=== PATIENT | male | born 1940 | race Caucasian/White ===

== ENCOUNTER 2018-10-31 23:43 | Observation (INO) | payer MEDICARE, OTHER ==
[2018-11-01 00:27] LABS: ABS Basophils 0 10^3/ul (0-0.2); ABS Eosinophils 0.1 10^3/ul (0-0.6); ABS Lymphocytes 0.5 10^3/ul (1.0-4.8); ABS Monocytes 0.3 10^3/ul (0-0.8); ABS Neutrophils 2.6 10^3/ul (1.5-7.7); ABS Nucleated RBC 0 10^3/ul; Eosinophil % 1.9 %; Hematocrit 39 % (36-46); Lymphocyte % 14.3 %; Mean Corpuscular HGB Conc 33 g/dL (31-36); Mean Corpuscular Hemoglobin 32 pg (27-31); Mean Corpuscular Volume 96 fL (80-94); Nucleated Red Blood Cells % 0.1; Platelet Count 120 10^3/uL (150-450); Red Blood Count 4.06 10^6 /uL (4.18-5.48); Red Cell Distribution Width 14 % (10.5-15); White Blood Count 3.5 10^3/uL (3.5-10.8)
[2018-11-01] MEDS ORDERED: diPHENhydraMINE IV* 50 MG/ML 1 ml VIAL (BENADRYL) IV ONE (00:34)
[2018-11-01] MEDS ORDERED: Meclizine TAB* 12.5 MG PO ONE (00:34)
[2018-11-01] MEDS ORDERED: Metoclopramide IV* 5 MG/ML 2 ML VIAL IV SLOW PU ONE (00:34)
[2018-11-01] MEDS ORDERED: NS 0.9% 1000 ML** 1,000 ML IV ONE (00:34)
--- NOTE | 2018-11-01 00:35 | ED ---
GI/ HPI - HPI Summary HPI Summary: 78-year-old male presents with dizziness, nausea and vomiting today. He states he had a large amount of food and then develop nausea vomiting. He states he feels very dizzy. He feels like he could passed out. No headache. No chest pain or shortness breath. Denies any bowel pain. He has been passing gas. No history of previous abdominal surgeries. He was transferred by EMS and given some Zofran and fluids by EMS. He has history of a pacemaker and a fib. is anticoagulanted. No one else is sick. he states he has felt so dizzy that he has been unable to ambulate and was stumbling on his feet. - History of Current Complaint Chief Complaint: EDNauseaVomitDiarrh Time Seen by Provider: 11/01/18 00:09 Stated Complaint: GENERAL ILLNESS PER EMS Pain Intensity: 0 - Additional Pertinent History Primary Care Physician: NICKI - Allergy/Home Medications Allergies/Adverse Reactions: Allergies Allergy/AdvReac Type Severity Reaction Status Date / Time Penicillins Allergy Severe Anaphylatic Verified 10/31/18 23:50 Shock Adhesive Tape AdvReac Severe Rash Verified 10/31/18 23:50 SOFT SHELL CRABS Allergy Severe ANAPHYLACTI Uncoded 10/31/18 23:50 C Home Medications: Home Medications Metoprolol Succinate XL TAB* [Toprol XL TAB*] 25 mg PO DAILY 11/01/18 [History Confirmed 11/01/18] PMH/Surg Hx/FS Hx/Imm Hx Endocrine/Hematology History: Reports: Other Endocrine/Hematological Disorders - IMMUNOLOGICAL (UNSPECIFIED); LEUKOPENIA Cardiovascular History: Reports: Hx Congenital Heart Disease - patent foramen ovale, Hx Congestive Heart Failure - EDEMA, Hx Hypertension - ON MEDICATION FOR , Hx Pacemaker/ICD - 08/2015- HEALTH INFORMATION SPECIALIST - DR. THOMPSON, Other Cardiovascular Problems/Disorders - OPEN HEART [id number] A PATENT FOREMEN OVALE Respiratory History: Reports: Hx Sleep Apnea, Other Respiratory Problems/ Disorders - SLEEP APNEA Denies: Hx Asthma, Hx Chronic Obstructive Pulmonary Disease (COPD) GI History: Reports: Other GI Disorders - constipation 1 week, nausea and ? diarrhea now r/t laxative per pt Musculoskeletal History: Reports: Hx Arthritis - OA/RA, Hx Rheumatoid Arthritis , Hx Bursitis, Hx Tendonitis Sensory History: Reports: Hx Contacts or Glasses - GLASSES Denies: Hx Hearing Aid Opthamlomology History: Reports: Hx Contacts or Glasses - GLASSES - Surgical History Surgery Procedure, Year, and Place: PatenT foramen ovale (ATRIAL-SEPTICAL DEFECT ), 1960, [facility] in [facility]. Right hip replacement, 2007, [facility]. Left knee replacement, 2012, [facility]. Carpal tunnel release bilaterally, 2009, [facility]. Laminectomy, 2007, [facility]. PACEMAKER [id number] Hx Anesthesia Reactions: No Infectious Disease History: No Infectious Disease History: Denies: Traveled Outside the [place] in Last 30 Days - Family History Known Family History: Positive: Non-Contributory - Social History Alcohol Use: None Alcohol Amount: 5 per week Substance Use Type: Reports: None Hx Tobacco Use: No Smoking Status (MU): Never Smoked Tobacco Have You Smoked in the Last Year: No Review of Systems Negative: Fever Negative: Chest Pain Negative: Shortness Of Breath Positive: Vomiting, Nausea Positive: Headache All Other Systems Reviewed And Are Negative: Yes Physical Exam Triage Information Reviewed: Yes Vital Signs On Initial Exam: Initial Vitals Temp Pulse Resp BP Pulse Ox 97.4 F 90 18 151/96 99 10/31/18 23:48 10/31/18 23:48 10/31/18 23:48 10/31/18 23:48 10/31/18 23:48 Vital Signs Reviewed: Yes Appearance: Positive: Well-Appearing Skin: Positive: Warm, Dry Head/Face: Positive: Normal Head/Face Inspection Eyes: Positive: Normal, EOMI, KELSEY, Conjunctiva Clear ENT: Positive: Normal ENT inspection, Pharynx normal, TMs normal Respiratory/Lung Sounds: Positive: Clear to Auscultation, Breath Sounds Present Cardiovascular: Positive: Normal, RRR Abdomen Description: Positive: Nontender, Soft Bowel Sounds: Positive: Present Musculoskeletal: Positive: Normal Neurological: Positive: Sensory/Motor Intact, Alert, Oriented to Person Place, Time, CN Intact II-III, Other - dizziness with head movement Psychiatric: Positive: Normal Diagnostics - Vital Signs Vital Signs Temp Pulse Resp BP Pulse Ox 11/01/18 00:09 91 19 144/92 98 11/01/18 00:08 19 10/31/18 23:48 97.4 F 90 18 151/96 99 - Laboratory Lab Results: Lab Results 11/01/18 Range/Units 00:19 WBC 3.5 (3.5-10.8) 10^3/uL RBC 4.06 L (4.18-5.48) 10^6 /uL Hgb 13.0 L (14.0-18.0) g/dL Hct 39 (36-46) % MCV 96 H (80-94) fL MCH 32 H (27-31) pg MCHC 33 (31-36) g/dL RDW 14 (10.5-15) % Plt Count 120 L (150-450) 10^3/uL MPV 8.0 (7.4-10.4) fL Neut % (Auto) 74.5 % Lymph % (Auto) 14.3 % Travis % (Auto) 8.6 % Eos % (Auto) 1.9 % Baso % (Auto) 0.7 % Absolute Neuts (auto) 2.6 (1.5-7.7) 10^3/ul Absolute Lymphs (auto) 0.5 L (1.0-4.8) 10^3/ul Absolute Monos (auto) 0.3 (0-0.8) 10^3/ul Absolute Eos (auto) 0.1 (0-0.6) 10^3/ul Absolute Basos (auto) 0 (0-0.2) 10^3/ul Absolute Nucleated RBC 0 10^3/ul Nucleated RBC % 0.1 Result Diagrams: 11/01/18 00:19 11/01/18 00:18 Lab Statement: Any lab studies that have been ordered have been reviewed, and results considered in the medical decision making process. - CT brain CT Interpretation Completed By: Radiologist Summary of CT Findings: IMPRESSION: 1. No acute intracranial abnormality. 2. Mild sinus mucosal disease. - EKG No standard instances Cardiac Rate: NL EKG Comparison: No Significant Change Summary of EKG Findings: venticular paced rhythm Re-Evaluation - Re-Evaluation First Eval Re-Evaluation Time: 13:30 Change: Improved Comment: nausea resolved, still dizzy Second Eval Re-Evaluation Time: 03:08 Change: Improved Comment: less dizzy just tired. attempted to have walk around room and needed to hold onto wall GIGU Course/Dx - Course Course Of Treatment: 78-year-old male presents with nausea and vomiting today. He states he had a large amount of food and then develop nausea vomiting. He states he feels very dizzy. He feels like he could passed out. No headache. No chest pain or shortness breath. Denies any bowel pain. He has been passing gas. No history of previous abdominal surgeries. He was transferred by EMS and given some Zofran and fluids by EMS. He has history of a pacemaker. No one else is sick. On exam nontender abdomen. lungs clear to Auscultation. EKG shows paced rhythm. Patient is dizzy with head movement. Otherwise normal neuro exam. wbc normal. electrolytes normal. Gave Benadryl and Reglan and fluids and feeling better. Patient was able to ambulate but became very dizzy. CT brain shows no acute findings. with symptoms discussed with dr joseph says to consult with hospitalist for stroke work up. patient will be signed out to dr joseph pending hospitalist consultation - Diagnoses Differential Diagnoses - Male: Gastroenteritis (Bacterial), Gastroenteritis ( Viral), Urinary Tract Infection Provider Diagnoses: Dizziness, Vomiting Discharge - Sign-Out/Discharge Documenting (check all that apply): Sign-Out Patient Signing out patient TO: Eduardo Joseph - Discharge Plan Referrals: Gonsalo Jauregui MD [Primary Care Provider] -
[2018-11-01 00:45] LABS: Albumin 4.1 g/dL (3.2-5.2); Albumin/Globulin Ratio 1.6 (1-3); BUN/Creatinine Ratio 25.7 (8-20); C Reactive Protein 7.99 mg/L (<8.01); Calcium 9.3 mg/dL (8.6-10.3); EGFR African American 61.6 (>60); EGFR Non-African American 50.9 (>60); Globulin 2.6 g/dL (2-4); Potassium 4.1 mmol/L (3.5-5.0); Total Bilirubin 0.9 mg/dL (0.2-1.0); Total Protein 6.7 g/dL (6.4-8.9)
[2018-11-01 00:46] LABS: Troponin I 0.03 ng/mL (<0.04)
[2018-11-01 01:55] LABS: Urine Appearance Cloudy; Urine Bilirubin Negative (Negative); Urine Blood Negative (Negative); Urine Color Yellow; Urine Glucose Negative (Negative); Urine Ketones Trace (Negative); Urine Nitrite Negative (Negative); Urine Protein Negative (Negative); Urine Specific Gravity 1.021 (1.010-1.030); Urine Urobilinogen Negative (Negative)
[2018-11-01] MEDS ORDERED: Losartan TAB* 25 MG PO SCH (09:00)
[2018-11-01] MEDS: Spironolactone TAB* 25 MG PO SCH (09:03)
[2018-11-01] MEDS: Rivaroxaban TAB(*) 20 MG TAB PO SCH (09:03)
[2018-11-01] MEDS: Metoprolol Succinate XL TAB* 25 MG PO SCH (09:03)
[2018-11-01] MEDS: Dofetilide CAP* 250 MCG PO SCH ×2 (09:03→20:45)
[2018-11-01] MEDS: Multivitamins/Minerals TAB PO SCH (09:04)
--- NOTE | 2018-11-01 09:50 | HP ---
CC: Dr. Jauregui; Dr. Way* HISTORY AND PHYSICAL: DATE OF ADMISSION: 11/01/18 PRIMARY CARE PROVIDER: Dr. Jauregui. GLOVE PAIRER: Dr. Way. CHIEF COMPLAINT: Dizziness. HISTORY OF PRESENT ILLNESS: Mr. Shearer is a 78-year-old male who has a history of paroxysmal atrial fibrillation, chronic diastolic congestive heart failure, NATALIA, hypertension, rheumatoid arthritis, and thrombocytopenia who presents to the emergency room with complaints of dizziness and nausea. The patient states that he has just completed a large meal with his at [facility]. When he stood up from the table and felt what he describes as head house. He felt quite woozy. He asked his to drive home because he was feeling unwell. He states that the initial head house feeling subsided, but he still continue to feel off. He felt as if he was swaying. He was able to get into his house and up 6 steps into his bedroom when he then stumbled into his closet. He ultimately got into bed and suddenly felt very nauseous and began to vomit. EMS was contacted. He was given Zofran in the ambulance and despite this he continued to have significant nausea. He again vomited in the ER. He states the nausea has completely resolved at this point. Overall, the patient states that he is no longer feeling the swaying sensation, but he feels drugged. He states that this does feel similar to when he takes Tylenol p.m. at home. He has been sitting in the stretcher with his eyes closed, but he states that he is doing that not because of ongoing dizziness. He has no dizziness when he turns his head from left to right or up and down. He has no dizziness upon sitting up in the stretcher. He and his both deny any sudden onset of one sided weakness, slurred speech, or droopy face. PAST MEDICAL HISTORY: 1. Atrial fibrillation. 2. Diastolic CHF. 3. NATALIA, utilizing CPAP at home. 4. Hypertension. 5. RA. 6. Thrombocytopenia. 7. Sick sinus syndrome. PAST SURGICAL HISTORY: 1. Left knee replacement. 2. Bilateral carpal tunnel release. 3. Lumbar laminectomy. 4. Pacemaker insertion. 5. ASD repair. 6. Right hip replacement. MEDICATIONS: 1. Micardis 80 mg p.o. daily. 2. Xarelto 20 mg p.o. daily. 3. Tikosyn 250 mcg p.o. twice daily. 4. Metoprolol XL 25 mg p.o. daily. 5. Magnesium 400 mg p.o. daily. 6. Glucosamine chondroitin 2 tablets p.o. daily. 7. Lasix 20 mg p.o. every other day alternating with spironolactone 25 mg every other day. 8. Multivitamin 1 tab p.o. daily. ALLERGIES: PENICILLIN. FAMILY HISTORY: Mom at the age of 93, she had hypertension and Alzheimer' s. Dad at the age of 59, he had TTP. SOCIAL HISTORY: The patient is a lifelong nonsmoker. He does not drink alcohol. 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 He is . He has 1 adopted child. He indicates that his would be his healthcare proxy. REVIEW OF SYSTEMS: A complete 11-system review of systems is obtained. Pertinent positives and negatives are as per HPI and otherwise negative. PHYSICAL EXAMINATION GENERAL: The patient is a well-developed, elderly male, sitting up in the stretcher, in no acute distress. VITAL SIGNS: Blood pressure 139/99, pulse 89, respirations 30, temp 97.4, O2 sat 97% on room air. HEENT: Pupils are equal and round. Extraocular muscles are intact. There is nystagmus noted when looking both left and right. It does not extinguish with far lateral gaze. Oropharynx is clear. Oral mucosa is moist. There is no submandibular, cervical, or supraclavicular adenopathy. Thyroid is not enlarged. No thyroid nodules are noted. PULMONARY: Lungs are clear to auscultation bilaterally. CARDIAC: Normal S1, S2. Regular rate and rhythm. I do not appreciate any murmurs. There is minimal bilateral lower extremity pitting edema. ABDOMEN: Bowel sounds present. Abdomen is soft, nontender, nondistended. MUSCULOSKELETAL: There is no cyanosis or clubbing of the digits. There is full active range of motion of all 4 extremities. SKIN: Warm and dry. There are no rashes. NEURO: Cranial nerves II through XII are grossly intact. Sensation is intact to light touch throughout. Strength is 5/5 and symmetric to both upper and lower extremities bilaterally. PSYCH: The patient is alert. He is oriented x3. Affect appears appropriate. LABORATORY DATA: WBC 3.5, hemoglobin 13.0, hematocrit 39, platelets 120. Sodium 140, potassium 4.1, chloride 105, CO2 of 28, BUN 35, creatinine 1.36, glucose 129. Lactic acid 1.3. Calcium 9.3. Bilirubin 0.9, AST 35, ALT 32, alk phos 74. Troponin 0.03. Albumin is 4.1. Urinalysis is pending. DIAGNOSTIC STUDIES: EKG revealed a ventricularly paced rhythm. CT brain revealed no acute intracranial abnormality and mild sinus mucosal disease. ASSESSMENT AND PLAN: Mr. Shearer is a 78-year-old male with a history of history of paroxysmal atrial fibrillation , diastolic congestive heart failure, obstructive sleep apnea, hypertension, and rheumatoid arthritis, who presented to the emergency room with complaints of dizziness and nausea and is being admitted for evaluation of the dizziness. 1. Dizziness. In the differential currently is posterior circulation cerebrovascular accident versus benign positional vertigo versus orthostasis leading to dizziness and vomiting. It is hard to tell if the patient is truly feeling better or not as he describes feeling drugged related to the Benadryl he received earlier. He has not been up and walking yet in the ER. Given the potentially ongoing symptoms and nystagmus seen on exam, the plan is to admit the patient under observation status to be evaluated by Neurology. I suspect this likely represents peripheral vertigo and not a cerebrovascular accident. 2. Atrial fibrillation. The patient is currently paced. We will continue his Tikosyn, metoprolol and Xarelto. 3. Diastolic congestive heart failure. At this point, the patient appears to be relatively euvolemic. He will continue on his current diuretic regimen. 4. Obstructive sleep apnea. We will continue CPAP. 5. Hypertension. Blood pressure is under fair control. We will continue home medication regimen. 6. DVT prophylaxis. According to the Adult Thrombosis Prophylaxis Risk Factor Assessment Guide, the patient has a total risk factor score of 4, making him high risk. He is already on Xarelto and this will act as his DVT prophylaxis. 7. Code status is full. TIME SPENT: Sixty five minutes was spent admitting this patient. [id number]/[facility] #: [id number] MTDVenita
--- NOTE | 2018-11-01 18:07 | CONS ---
CONSULTATION REPORT: DATE OF CONSULT: 11/01/18. PATIENT OF: Dr. Curran, Dr. Jauregui, Dr. Way.* HISTORY OF PRESENT ILLNESS: This is a 78-year-old man, who presents with new onset of vertigo and nausea. He developed a head house and a feeling of wooziness shortly after dinner, a large meal at a restaurant, and he had his drive home because he was feeling unwell. He says that the symptoms progressed over the first hour and by the time he got home, he was stumbling and had a hard time maintaining his balance. He did not fall. He had nausea and vomiting and the feeling that things were moving, although it was not a spinning sensation per se. He says that yesterday he was unable to move his head without this sensation of dizziness being worse, although this is different than Dr. Ponce's history on admission. PAST MEDICAL HISTORY: He has a past history of atrial fibrillation, diastolic congestive heart failure, osteoarthritis, hypertension, rheumatoid arthritis, thrombocytopenia, sick sinus syndrome. PAST SURGICAL HISTORY: He is status post left knee replacement, bilateral carpal tunnel release, lumbar laminectomy, pacemaker insertion which is MRI compatible, ASD repair, right hip replacement. MEDICATIONS: At home, include: 1. Micardis 80 mg daily. 2. Xarelto 20 mg daily. 3. Tikosyn 250 twice daily. 4. Metoprolol 25 mg daily. 5. Magnesium 400 daily. 6. Glucosamine 2 tablets daily. 7. Lasix 20 mg every other day alternating with spironolactone 25 mg every other day. 8. Multivitamin. ALLERGIES: He is allergic to PENICILLIN. FAMILY HISTORY: Mother at 93 with hypertension and Alzheimer's. Father at 59 of TTP. 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 He is , with 1 adopted child. REVIEW OF SYSTEMS: Negative in all 14 spheres other than HPI. There was no headache. No visual changes. No numbness or weakness. His balance was usually good. PHYSICAL EXAM: Temperature 98.6, pulse 90, respirations 18, blood pressure 126/ 84. He is alert and oriented with normal speech and comprehension. There is no dysarthria. Cranial nerves II through XII were intact other than he had nystagmus both to the left and to the right with the left nystagmus perhaps being somewhat larger than the right nystagmus, but they were roughly symmetric. Motor exam revealed normal tone. No pronator drift. He had intact symmetric [id number]. There was slight hesitancy, but no past-pointing. His nystagmus was not worse with quick changes in head position. He was able to get out of bed and walk independently, but he veered both off to the left and to the right without clear predominance. Strength was 5/5. Reflexes were 2 and equal, downgoing toes. Chest: Clear. Cardiovascular: Regular rate and rhythm. Abdomen is soft with positive bowel sounds. I was not sure if there was a carotid bruit on the right, Dr. Curran heard one, I was not 100% sure. DIAGNOSTIC STUDIES/LAB DATA: I reviewed his CT scan, which was unremarkable. His labs include a normal CBC other than a platelet count of 120, MCV was 96. BUN was 35, creatinine 1.36. Rest of the CMP was normal other than glucose of 129. UA was negative. IMPRESSION AND PLAN: I discussed with Red and also Dr. Curran that the onset of his symptoms was not instant, but occurred an hour that there was a positional component to this according to the patient today and that his nystagmus was bilateral and he is staggering to either side. I think most likely this is peripheral rather than central, but it is possible there was mild asymmetry to the degree of his nystagmus on either side that this could be stroke related and he does have atrial fibrillation. He should have an MRI scan done and Dr. Curran is ordering that, but I think he is clearly not a tPA candidate because he was never a tPA candidate because he is on Xarelto and he has done so much better, he would not be a clot retrieval candidate given the time course and also that he is able to independently walk at this time. Therefore, we will order the MRI scan, but it would not change his immediate care at this point. Dr. Curran will also prescribe meclizine. It was prescribed yesterday, but it was discontinued. He does not remember taking it. He should also have Physical Therapy consult to teach him how to do maneuvers to flush if he had otolith. Thank you for sharing his case. [id number]/[facility] #: [id number] WES
[2018-11-01] MEDS ORDERED: Meclizine TAB* 12.5 MG PO PRN (18:39)
--- NOTE | 2018-11-01 18:46 | PN ---
Subjective Date of Service: 11/01/18 Interval History: Still feels fuzzy like he had taken benadryl No N/V, LH Does not feel dizzy NO HUGHES, change in vision, dipolpia Objective Active Medications: Dofetilide (Tikosyn Cap*) 250 mcg PO BID [facility] Last Admin: 11/01/18 09:03 Dose: 250 mcg Furosemide (Lasix Tab*) 20 mg PO EVERY OTHER DAY [facility] Losartan Potassium (Cozaar Tab*) 100 mg PO DAILY [facility]; Protocol Last Admin: 11/01/18 09:03 Dose: 100 mg Metoprolol Succinate (Toprol Xl Tab*) 25 mg PO DAILY [facility] Last Admin: 11/01/18 09:03 Dose: 25 mg Multivitamins/Minerals (Theragran/Minerals Tab*) 1 tab PO DAILY [facility] Last Admin: 11/01/18 09:04 Dose: 1 tab Rivaroxaban (Xarelto(*)) 20 mg PO DAILY [facility] Last Admin: 11/01/18 09:03 Dose: 20 mg Spironolactone (Aldactone Tab*) 25 mg PO EVERY OTHER DAY [facility] Last Admin: 11/01/18 09:03 Dose: 25 mg Vital Signs - 8 hr 11/01/18 13:10 Temperature 98.6 F Pulse Rate 90 Respiratory 18 Rate Blood Pressure 126/84 (mmHg) O2 Sat by Pulse 98 Oximetry Oxygen Devices in Use Now: None Appearance: NAD Eyes: No Scleral Icterus, PERRLA Ears/Nose/Mouth/Throat: NL Teeth, Lips, Gums, Clear Oropharnyx Neck: NL Appearance and Movements; NL JVP, Trachea Midline, - - right carotid bruit Respiratory: Symmetrical Chest Expansion and Respiratory Effort, Clear to Auscultation Cardiovascular: NL Sounds; No Murmurs; No JVD Abdominal: NL Sounds; No Tenderness; No Distention, No Hepatosplenomegaly Lymphatic: No Cervical Adenopathy Extremities: No Edema Skin: No Rash or Ulcers Neurological: Alert and Oriented x 3, - - b/l nystagmus but more pronounced to left, unable to ealk heel to chandler Result Diagrams: 11/01/18 00:19 11/01/18 00:18 Additional Lab and Data: Lab Results 11/01/18 Range/Units 00:19 WBC 3.5 (3.5-10.8) 10^3/uL RBC 4.06 L (4.18-5.48) 10^6 /uL Hgb 13.0 L (14.0-18.0) g/dL Hct 39 (36-46) % MCV 96 H (80-94) fL MCH 32 H (27-31) pg MCHC 33 (31-36) g/dL RDW 14 (10.5-15) % Plt Count 120 L (150-450) 10^3/uL MPV 8.0 (7.4-10.4) fL Neut % (Auto) 74.5 % Lymph % (Auto) 14.3 % Cassia % (Auto) 8.6 % Eos % (Auto) 1.9 % Baso % (Auto) 0.7 % Absolute Neuts (auto) 2.6 (1.5-7.7) 10^3/ul Absolute Lymphs (auto) 0.5 L (1.0-4.8) 10^3/ul Absolute Monos (auto) 0.3 (0-0.8) 10^3/ul Absolute Eos (auto) 0.1 (0-0.6) 10^3/ul Absolute Basos (auto) 0 (0-0.2) 10^3/ul Absolute Nucleated RBC 0 10^3/ul Nucleated RBC % 0.1 Assess/Plan/Problems-Billing Assessment: 78 yo M h/o NATALIA, afib, HFpEF pw LH/dizziness associated with multiple episodes emesis - Patient Problems (1) Vertigo Comment: appreciate neuro c/s suspect peripheral etiology but MRI still warranted meclizine may need PT for vertigo (2) Atrial fibrillation Comment: xarelto metoprolol tikosyn (3) (HFpEF) heart failure with preserved ejection fraction Comment: lasix (4) Hypertension Comment: losartan aldactone metoprolol lasix (5) DVT prophylaxis Comment: jai
[2018-11-02] MEDS ORDERED: Furosemide TAB* 20 MG PO SCH (09:00)
[2018-11-02] MEDS: Multivitamins/Minerals TAB PO SCH (10:04)
[2018-11-02] MEDS: Dofetilide CAP* 250 MCG PO SCH ×2 (10:04→21:32)
[2018-11-02] MEDS: Metoprolol Succinate XL TAB* 25 MG PO SCH (12:58)
[2018-11-02] MEDS: Rivaroxaban TAB(*) 20 MG TAB PO SCH (12:58)
--- NOTE | 2018-11-02 13:20 | PN ---
Subjective Date of Service: 11/02/18 Interval History: Feels much improved but not back to baseline Does not feel like he is going to "fall flat on my face" but still feels "off" Ambulating today without assistance and without trouble No N/V, LH, SOB or CP Objective Active Medications: Dofetilide (Tikosyn Cap*) 250 mcg PO BID [facility] Last Admin: 11/02/18 10:04 Dose: 250 mcg Furosemide (Lasix Tab*) 20 mg PO EVERY OTHER DAY [facility] Last Admin: 11/02/18 10:04 Dose: 20 mg Losartan Potassium (Cozaar Tab*) 100 mg PO BEDTIME [facility]; Protocol Meclizine HCl (Antivert Tab*) 25 mg PO Q8HR PRN PRN Reason: DIZZINESS Metoprolol Succinate (Toprol Xl Tab*) 25 mg PO 2100 [facility] Multivitamins/Minerals (Theragran/Minerals Tab*) 1 tab PO DAILY [facility] Last Admin: 11/02/18 10:04 Dose: 1 tab Rivaroxaban (Xarelto(*)) 20 mg PO 2100 [facility] Spironolactone (Aldactone Tab*) 25 mg PO EVERY OTHER DAY [facility] Last Admin: 11/01/18 09:03 Dose: 25 mg Vital Signs - 8 hr 11/02/18 11/02/18 08:00 08:46 Temperature 97 F Pulse Rate 92 Respiratory 20 17 Rate Blood Pressure 128/88 (mmHg) O2 Sat by Pulse 100 Oximetry Oxygen Devices in Use Now: None Appearance: NAD Eyes: No Scleral Icterus, PERRLA Ears/Nose/Mouth/Throat: NL Teeth, Lips, Gums, Clear Oropharnyx Neck: NL Appearance and Movements; NL JVP, Trachea Midline Respiratory: Symmetrical Chest Expansion and Respiratory Effort, Clear to Auscultation Cardiovascular: RRR Abdominal: NL Sounds; No Tenderness; No Distention, No Hepatosplenomegaly Lymphatic: No Cervical Adenopathy Extremities: No Edema Skin: No Rash or Ulcers Neurological: Alert and Oriented x 3, - - nystagmus to left and right Result Diagrams: 11/01/18 00:19 11/01/18 00:18 Additional Lab and Data: Lab Results 11/01/18 Range/Units 00:19 WBC 3.5 (3.5-10.8) 10^3/uL RBC 4.06 L (4.18-5.48) 10^6 /uL Hgb 13.0 L (14.0-18.0) g/dL Hct 39 (36-46) % MCV 96 H (80-94) fL MCH 32 H (27-31) pg MCHC 33 (31-36) g/dL RDW 14 (10.5-15) % Plt Count 120 L (150-450) 10^3/uL MPV 8.0 (7.4-10.4) fL Neut % (Auto) 74.5 % Lymph % (Auto) 14.3 % [place] % (Auto) 8.6 % Eos % (Auto) 1.9 % Baso % (Auto) 0.7 % Absolute Neuts (auto) 2.6 (1.5-7.7) 10^3/ul Absolute Lymphs (auto) 0.5 L (1.0-4.8) 10^3/ul Absolute Monos (auto) 0.3 (0-0.8) 10^3/ul Absolute Eos (auto) 0.1 (0-0.6) 10^3/ul Absolute Basos (auto) 0 (0-0.2) 10^3/ul Absolute Nucleated RBC 0 10^3/ul Nucleated RBC % 0.1 Assess/Plan/Problems-Billing Assessment: 78 yo M h/o NATALIA, afib, HFpEF pw LH/dizziness associated with multiple episodes emesis - Patient Problems (1) Vertigo Comment: appreciate neuro c/s suspect peripheral etiology but MRI still warranted to r/o CVA If CVA noted will need additional diagnostic tests and treatment meclizine PT for vertigo appreciated (2) Atrial fibrillation Comment: xarelto metoprolol tikosyn (3) (HFpEF) heart failure with preserved ejection fraction Comment: lasix (4) Hypertension Comment: losartan aldactone metoprolol lasix (5) DVT prophylaxis Comment: kristinrelto
[2018-11-02] MEDS ORDERED: Losartan TAB* 25 MG PO SCH (21:00)
[2018-11-02] MEDS ORDERED: Metoprolol Succinate XL TAB* 25 MG PO SCH (21:00)
[2018-11-02] MEDS ORDERED: Rivaroxaban TAB(*) 20 MG TAB PO SCH (21:00)
[2018-11-02] MEDS ORDERED: Polyethylene Glycol 3350* 17 GM PACKET PO PRN (22:46)
[2018-11-03] MEDS: Spironolactone TAB* 25 MG PO SCH (08:02)
[2018-11-03] MEDS: Multivitamins/Minerals TAB PO SCH (08:02)
[2018-11-03 08:03] VITALS: BP 127/90
[2018-11-03] MEDS: Dofetilide CAP* 250 MCG PO SCH (08:03)
--- NOTE | 2018-11-03 14:33 | PN ---
Subjective Date of Service: 11/03/18 Length of Stay: 2 Days Neurology is following Mr. Shearer for transient vertigo. Interval History: Review of the medical history obtained by the patient and by reviewing the medical records. The patient is a healthy 78-year-old man with history of atrial fibrillation on Xarelto (compliant) who developed a gradual onset of vertigo. The patient had dinner at the [employer] Saturday evening and he felt a head house after dinner. He was able to walk to his car but felt unsteady. His spouse had to drive home because he did not feel safe to drive. When he got home, the vertiginous sensation was constant. He described it as being pulled and turned but nothing around him was spinning. He denied any double vision, tinnitus, or hearing loss. He denied any headaches. He felt extremely nauseated and was vomiting. Moving his head seemed to exacerbate his vertigo. He does not typically vomit. He denied any fevers. He denied any focal weakness or paresthesia. The symptoms were at their worse Saturday night. He was slowly improving throughout the day Saturday and felt completely back to his normal self on Saturday. He was evaluated by Dr. Jones who thought he may have a peripheral cause for his vertigo. However, a central etiology was unable to be excluded. The patient has a pacemaker for sick sinus syndrome. The pacemaker is MRI compatible. He is disappointed that he had to stay here throughout the weekend and be told that an MRI cannot be done until a [employer] tech is present. He does not want to wait for the MRI any longer and would prefer to have it scheduled as an outpatient. He was started on Meclizine and seems to be tolerating the medication with improvement in his vertigo. Mr. Shearer is asymptomatic. He denied any headaches, visual disturbance, dizziness, or paresthesia. CT head without contrast completed on 11/01/2018 reported no evidence of acute intracranial abnormalities. There was small hyperdensity in the fourth ventricle. In this clinical setting, this finding is non-specific. Carotid ultrasound completed on 11/02/2018 measured no hemodynamically significant stenosis bilaterally. There were right and left vertebral artery antegrade flow. Review of Systems: Denied CP, SOB, or palpitations. Objective Active Medications: Dofetilide (Tikosyn Cap*) 250 mcg PO BID [facility] Last Admin: 11/03/18 08:03 Dose: 250 mcg Furosemide (Lasix Tab*) 20 mg PO EVERY OTHER DAY [facility] Last Admin: 11/02/18 10:04 Dose: 20 mg Losartan Potassium (Cozaar Tab*) 100 mg PO BEDTIME [facility]; Protocol Last Admin: 11/02/18 21:35 Dose: 100 mg Meclizine HCl (Antivert Tab*) 25 mg PO Q8HR PRN PRN Reason: DIZZINESS Metoprolol Succinate (Toprol Xl Tab*) 25 mg PO 2100 [facility] Last Admin: 11/02/18 21:36 Dose: 25 mg Multivitamins/Minerals (Theragran/Minerals Tab*) 1 tab PO DAILY [facility] Last Admin: 11/03/18 08:02 Dose: 1 tab Polyethylene Glycol/Electrolytes (Miralax*) 17 gm PO DAILY PRN PRN Reason: CONSTIPATION Last Admin: 11/02/18 23:15 Dose: 17 gm Rivaroxaban (Xarelto(*)) 20 mg PO 2100 [facility] Last Admin: 11/02/18 21:38 Dose: 20 mg Spironolactone (Aldactone Tab*) 25 mg PO EVERY OTHER DAY [facility] Last Admin: 11/03/18 08:02 Dose: 25 mg Vital Signs 11/02/18 11/02/18 11/02/18 19:34 20:00 23:35 Temperature 97.8 F Pulse Rate 96 94 Respiratory 18 18 Rate Blood Pressure 118/80 113/72 (mmHg) O2 Sat by Pulse 100 98 Oximetry 11/03/18 11/03/18 11/03/18 04:45 07:51 07:54 Temperature 97 F 97.7 F Pulse Rate 93 94 Respiratory 18 20 18 Rate Blood Pressure 121/85 127/90 (mmHg) O2 Sat by Pulse 98 98 Oximetry Intake and Output Last 24 Hours 11/01/18 11/02/18 11/03/18 11/04/18 06:59 06:59 06:59 06:59 Intake Total 1000 500 840 250 Output Total 0 0 Balance 1000 500 840 250 Weight 197 lb 14.4 oz Intake: IV Fluids 1000 Oral 0 500 840 250 Output: Urine 0 0 Other: # Voids 0 Oxygen Devices in Use Now: None Neurology Exam: General: Well nourished, well developed, and in no acute distress HEENT: Normocephelic/atraumatic, sclera anicteric, mucous membranes moist Neck: Supple Chest: Clear to auscultation bilaterally Cardiovascular: Regular rate and rhythm without murmurs, rubs, gallops Abdomen: Soft, non-tender/non-distended Extremities: No clubbing, cyanosis, or edema Neurological Findings: Awake, alert, and oriented to person, place, and time. Speech: fluent without dysarthria, repetition intact Cranial Nerve: PERRL, EOM intact, VFF, right horizontal nystagmus that is fatigable. No primary gaze nystagmus. HiNT is positive towards the right. Motor: s/s throughout, proximal and distal extremities x4 tone/bulk normal Sensation: intact to LT/PP bilaterally upper and lower extremities Deep Tendon Reflex: 2+ symmetric in the upper/lower extremities, Babinski - down going Finger to nose, rapid alternating movements intact without tremor, no dysdiadochokinesia Gait: intact with good arm swing and stride Result Diagrams: 11/01/18 00:19 11/01/18 00:18 Additional Lab and Data: Lab Results 11/01/18 Range/Units 00:19 WBC 3.5 (3.5-10.8) 10^3/uL RBC 4.06 L (4.18-5.48) 10^6 /uL Hgb 13.0 L (14.0-18.0) g/dL Hct 39 (36-46) % MCV 96 H (80-94) fL MCH 32 H (27-31) pg MCHC 33 (31-36) g/dL RDW 14 (10.5-15) % Plt Count 120 L (150-450) 10^3/uL MPV 8.0 (7.4-10.4) fL Neut % (Auto) 74.5 % Lymph % (Auto) 14.3 % [place] % (Auto) 8.6 % Eos % (Auto) 1.9 % Baso % (Auto) 0.7 % Absolute Neuts (auto) 2.6 (1.5-7.7) 10^3/ul Absolute Lymphs (auto) 0.5 L (1.0-4.8) 10^3/ul Absolute Monos (auto) 0.3 (0-0.8) 10^3/ul Absolute Eos (auto) 0.1 (0-0.6) 10^3/ul Absolute Basos (auto) 0 (0-0.2) 10^3/ul Absolute Nucleated RBC 0 10^3/ul Nucleated RBC % 0.1 Assessment/Plan Assessment/recommendations: 1. Transient vertigo that lasted <24 hours. Positive HiNT and fatigable nystagmus towards the right suggests vestibular dysfunction involving the right side. This can be related to BPPV or acute labrynthitis. The lack of hearing loss and tinnitus suggests against vestibular neuritis. A central cause has been entertained but is less likely. However, since his symptoms resolved quite quickly, TIA to the posterior circulation due to vertebrobasilar insufficiency should be further evaluated. The patient would prefer to complete the work-up as an outpatient since he has been waiting for an MRI all weekend. He had an ECHO done recently by his cash checker. He also had an LDL checked and does not report any elevation of LDL. I have arranged for him to have an MRI brain without contrast, MRA head without contrast, and MRA neck without contrast done as an outpatient. The MRI screen/Interview is scheduled for November. He will also follow- up with me on November 17, 2018 to review the results. I recommend starting him on aspirin 81 mg daily to be taken in the morning and not with the Xarelto dose. Continue Xarelto. Continue exercising regularly. He agreed with the plan and verbalized that if he has recurrence of the symptoms or new symptoms such as facial droop, arm weakness, slurred speech to contact 911 immediately. Time spent: 35 minutes of which >50% was spent obtaining history, physical examination, education and counseling, and discussing the treatment plan as mentioned above.
--- NOTE | 2018-11-03 21:37 | DS ---
CC: Dr. Jauregui; Dr. Matute * DISCHARGE SUMMARY: DATE OF ADMISSION: 11/01/18 DATE OF DISCHARGE: 11/03/18 PRIMARY CARE PROVIDER: Dr. Jauregui. NEUROLOGIST: Dr. Matute. PRINCIPAL DIAGNOSIS: Peripheral vertigo versus possible posterior circulation transient ischemic attack. SECONDARY DIAGNOSES: 1. Hypertension. 2. Atrial fibrillation. 3. Diastolic congestive heart failure. 4. Sick sinus syndrome, status post pacemaker insertion. 5. Obstructive sleep apnea. 6. Rheumatoid arthritis. 7. Chronic thrombocytopenia. DISCHARGE MEDICATIONS: 1. Spironolactone 25 mg p.o. every other day alternating with Lasix 20 mg every other day. 2. Telmisartan 80 mg p.o. daily. 3. Multivitamin 1 tab p.o. daily. 4. Magnesium oxide 400 mg p.o. daily. 5. Glucosamine chondroitin 1500 mg p.o. b.i.d. 6. Tikosyn 250 mcg p.o. b.i.d. 7. Xarelto 20 mg p.o. daily. 8. Metoprolol XL 25 mg p.o. daily. 9. Aspirin 81 mg p.o. daily (new). HOSPITAL COURSE: Mr. Shearer is a 78-year-old male, who presented to the emergency room on 11/01/18 with complaints of dizziness. The patient had just consumed a large meal at dinner with his when he then stood up from the table and felt a whooshing sensation and felt unsteady. The unsteadiness continued at home. He was stumbling around in his closet, but did not fall. The patient then had nausea and vomiting. Ultimately, he was brought to the emergency room via EMS. In the ER, he had received Benadryl, which made the patient feel quite loopy. He felt out of it, but did note that a swaying sensation that he had described previously had seemed to have resolved. The patient was then seen in consultation later in the day on 11/01/[address] Jones recommended an MRI of the brain. This was planned to be done on 11/03/18; however, given the patient's pacemaker status, a clearance process needs to be undertaken before the patient can have the MRI. Because of this, I asked Dr. Matute to see the patient in followup. Dr. Matute has recommended initiating aspirin 81 mg p.o. daily while waiting for an MRI and an MRA to evaluate for vertebrobasilar insufficiency. Dr. Mattue will see the patient in followup on 11/17/18 to review the results of the MRI and at that time if negative, the aspirin will be discontinued. At this point, the patient is feeling much improved. He has been ambulating with a steady gait. He does continue to feel somewhat off. He does continue to have some nystagmus. The patient will return to the emergency room for any new or worsening symptoms. PHYSICAL EXAMINATION: On the day of discharge, the patient is awake, alert, and oriented, sitting in the chair, in no acute distress. Cardiac exam reveals normal a S1, S2 with a regular rate and rhythm. I do not appreciate any murmurs. There is no lower extremity edema. Lungs are clear to auscultation bilaterally. Abdomen is soft, nontender, nondistended. Again, the patient walks with a fluid steady gait. FOLLOWUP CONCERNS: The patient is being discharged home today, 11/03/18. I am unable to arrange for the MRI to be obtained as an outpatient. I have spoken to the neurology office, who will get the patient arranged for an outpatient MRI and MRA. ACTIVITY LEVEL: As tolerated. DIET: Heart healthy. CONDITION ON DISCHARGE: Stable. TIME SPENT: Thirty-five minutes was spent discharging this patient. [id number]/[facility] #: [id number] WES
== END 2018-11-03 14:41 | disposition home or self-care (01) ==
LOC: ED 23:43 → MEDTELE 11-01 04:20
PROVIDERS: ADMIT Hospitalist; ATTEND Hospitalist
DX: R42 Dizziness and giddiness (principal); I10 Essential (primary) hypertension; I48.91 Unspecified atrial fibrillation; I50.30 Unspecified diastolic (congestive) heart failure; Z95.0 Presence of cardiac pacemaker; M06.9 Rheumatoid arthritis, unspecified; R11.2 Nausea with vomiting, unspecified; D69.6 Thrombocytopenia, unspecified; Z88.0 Allergy status to penicillin; R51 Headache; I49.5 Sick sinus syndrome; G47.33 Obstructive sleep apnea (adult) (pediatric); Z79.82 Long term (current) use of aspirin; D72.819 Decreased white blood cell count, unspecified
CPT/HCPCS: 36415; 70450; 80053; 81003; 83605; 83690; 84484; 85025; 86140; 93005; 93880; 94660; 96361; 96374; 96375; 99285; A9270-GY; G0378; G8978-GP-CI; G8979-GP-CI; G8980-GP-CI; J1200; J2765

== ENCOUNTER → 2019-01-16 10:17 | Day surgery (SDC) | payer MEDICARE, OTHER ==
[~2019-01-16 10:17] MED LIST: Heparin 2 UNITS/ML IVPREMIX* 2,000 UNIT/1,000 ML BAG IV ONE; Heparin(*) 1000 UNIT/ML 10 ML VIAL CATH LAB IV ONE; Iodixanol 320 (CONTRAST) 100 ML SDV ONE; Lidocaine 1% INJ* 10 MG/ML 30 ML SDV ONE; Midazolam* 1 MG/ML 5 ML VIAL (5 MG) ONE; NS 0.9% 1000 ML** 1,000 ML IV SCH; VERAPAMIL 2.5 MG/ML 2 ML VIAL ** 5 mg/2 ml ONE; fentaNYL* 50 MCG/ML 2 ML VIAL (100 MCG VIAL) ONE; nitroGLYCERIN DRIP* 25,000 MCG/250 ML BTL ONE
[2019-01-16 16:51] VITALS: BP 111/57
--- NOTE | 2019-01-27 15:43 | CATH ---
CC: Dr. Jauregui; Dr. Way * CATHETERIZATION REPORT: DATE OF PROCEDURE: 01/16/19 - [facility] CATH PRIMARY CARE PHYSICIAN: Dr. Jauregui. TAPER MACHINE: Dr. Way. PROCEDURES: Right radial artery access, bilateral selective coronary cineangiography, left heart catheterization, left ventriculography. HISTORY: A 78-year-old male with history of paroxysmal atrial fibrillation, LV systolic dysfunction, stress imaging that revealed an inferior infarct on MPI. Subsequent thallium viability study revealed the inferior wall to be viable. He was referred for coronary angiography. PROCEDURE ACCESS: Right radial artery, sheath 6F slender with ultrasound. MEDICATIONS: 1. Subcu lidocaine. 2. IV Versed. 3. IV fentanyl. 4. Heparin 3000 units. 5. Verapamil 3 mg. 6. Nitroglycerin 300 mcg IA. DIAGNOSTIC CATHETERS: 5F TIG4, 5F pigtail. HEMODYNAMICS: Initial AO: 122/62. LV post contrast, 128/2-19, no aortic valve gradient on pullback. Precontrast LVEDP was 18, suggestive of diastolic dysfunction. ANGIOGRAPHY: Left main: The left main is normal without stenosis. LAD: The LAD is large, extends past the apex, the LAD has minimal luminal irregularity, has no stenosis. Incidentally noted are a pacemaker, as well as sternal wires from remote PFO closure. Circumflex: The circumflex is large, not dominant with luminal irregularity but no significant stenosis, it supplies a large bifurcated posterolateral branch. RCA: The RCA is large, dominant, the acute marginal branch supplies the PDA. It is followed by a moderate posterolateral. The RCA has no stenosis. LV gram: Inferior wall motion is fairly normal, there is mild anterolateral and apical hypokinesis, visually estimated LVEF 45% to 50%. CONCLUSION: 1. No obstructive coronary disease. 2. Mildly impaired LV systolic function consistent with cardiomyopathy. 3. Successful right radial artery access. 4. Possible diastolic dysfunction based on rise in LVDP post LV gram. [id number]/[facility] #: [id number] MTDD
== END | disposition home or self-care (01) ==
LOC: CHICATH 10:17
PROVIDERS: ATTEND Internal Medicine Cardiovascular Disease
DX: R94.39 Abnormal result of other cardiovascular function study (principal); I42.9 Cardiomyopathy, unspecified; I48.0 Paroxysmal atrial fibrillation; Z95.0 Presence of cardiac pacemaker; Z79.01 Long term (current) use of anticoagulants; M79.89 Other specified soft tissue disorders; G47.33 Obstructive sleep apnea (adult) (pediatric); I10 Essential (primary) hypertension; I50.32 Chronic diastolic (congestive) heart failure; R60.0 Localized edema
CPT/HCPCS: 93458; 99156; 99157; J1644; J2250; J3010

== ENCOUNTER 2020-03-30 14:56 | Inpatient (IN) ==
[2020-03-30 10:58] LABS: BUN/Creatinine Ratio 25.7 (8-20); Calcium 9.5 mg/dL (8.6-10.3); EGFR African American 61.5 (>60); EGFR Non-African American 50.8 (>60); Magnesium 2.3 mg/dL (1.9-2.7)
[2020-03-30] MEDS: CMCS - Epleronone 25 mg TAB (NF) PO SCH (13:44)
[2020-03-30] MEDS ORDERED: MELATONIN PYRIDOXINE HCL PO SCH (21:00)
[2020-03-30] MEDS: GLUCOSAMINE SULFATE 750 MG PO SCH (23:06)
[2020-03-31 07:23] LABS: BUN/Creatinine Ratio 29.3 (8-20); Calcium 9.2 mg/dL (8.6-10.3); EGFR African American 59.5 (>60); EGFR Non-African American 49.1 (>60); Potassium 3.7 mmol/L (3.5-5.0)
[2020-03-31] MEDS: Multivitamins/Minerals TAB PO SCH ×2 (08:44→08:45)
[2020-03-31] MEDS: CMCS - Epleronone 25 mg TAB (NF) PO SCH ×2 (08:44→08:45)
[2020-03-31] MEDS: GLUCOSAMINE SULFATE 750 MG PO SCH ×3 (08:45→21:12)
[2020-03-31] MEDS ORDERED: Midazolam 5 mg/5 ml VIAL 1 mg/ml 5 ml VIAL (5 mg) ONE (10:15)
[2020-03-31] MEDS ORDERED: Flumazenil 0.5 mg/5 ml 0.1 MG/ML 5 ml VIAL ONE (10:15)
[2020-03-31] MEDS ORDERED: fentaNYL 100 mcg/2 ml 50 MCG/ML VIAL ONE (10:15)
[2020-03-31] MEDS ORDERED: Naloxone 0.4 mg VIAL 0.4 mg/ml 1 ml VIAL ONE (10:15)
[2020-03-31] MEDS ORDERED: Potassium Chlor 20 meq TAB.ER PO ONE (12:00)
[2020-03-31 13:05] LABS: Calcium 9.5 mg/dL (8.6-10.3); EGFR Non-African American 48.7 (>60)
[2020-04-01 07:43] LABS: BUN/Creatinine Ratio 26.6 (8-20); Calcium 9.3 mg/dL (8.6-10.3); Potassium 3.9 mmol/L (3.5-5.0)
[2020-04-01] MEDS ORDERED: Potassium Chlor 20 meq TAB.ER PO ONE (08:16)
[2020-04-01] MEDS: CMCS - Epleronone 25 mg TAB (NF) PO SCH (08:45)
[2020-04-01] MEDS: Multivitamins/Minerals TAB PO SCH (08:46)
[2020-04-01] MEDS: GLUCOSAMINE SULFATE 750 MG PO SCH ×2 (08:49→22:06)
[2020-04-01 11:09] LABS: Urine Creatinine Concentration 43.49 mg/dL
[2020-04-01 11:10] LABS: Creatinine, Serum 1.46 mg/dL (0.51-0.95)
[2020-04-02] MEDS: Multivitamins/Minerals TAB PO SCH (08:58)
[2020-04-02] MEDS: CMCS - Epleronone 25 mg TAB (NF) PO SCH (08:58)
[2020-04-02] MEDS: GLUCOSAMINE SULFATE 750 MG PO SCH (08:59)
[2020-04-02 12:50] VITALS: BP 107/61
== END 2020-04-02 11:55 | disposition home or self-care (01) | DRG 309 ==
LOC: MEDTELE
PROVIDERS: ADMIT Specialist; ATTEND Specialist
PROC: CARDVER (ICD-10-PCS; 2020-03-31 12:20)

== ENCOUNTER 2021-08-22 12:36 | Inpatient (IN) ==
[~2021-08-22 12:36] MED LIST changes: +Buffered Lidocaine 1% SYRIN 1 ml INTRADERM ONE; +Clindamycin 900 MG/D5W BAG 900 MG/50 ML BAG IVPB ONE; +Famotidine IV 10 MG/ML 2 ml VIAL (20 mg) IV ONE; +Famotidine IV 10 MG/ML 2 ml VIAL (20 mg) ONE; -Heparin 2 UNITS/ML IVPREMIX* 2,000 UNIT/1,000 ML BAG IV ONE; -Heparin(*) 1000 UNIT/ML 10 ML VIAL CATH LAB IV ONE; -Iodixanol 320 (CONTRAST) 100 ML SDV ONE; +Lactated Ringers 1000 ml BAG 1,000 ML IV SCH; -Lidocaine 1% INJ* 10 MG/ML 30 ML SDV ONE; -Midazolam* 1 MG/ML 5 ML VIAL (5 MG) ONE; -NS 0.9% 1000 ML** 1,000 ML IV SCH; -VERAPAMIL 2.5 MG/ML 2 ML VIAL ** 5 mg/2 ml ONE; -fentaNYL* 50 MCG/ML 2 ML VIAL (100 MCG VIAL) ONE; -nitroGLYCERIN DRIP* 25,000 MCG/250 ML BTL ONE
[2021-08-22 13:14] LABS: INR 1.31 (0.86-1.15)
[2021-08-22 13:25] LABS: Calcium 10.2 mg/dL (8.6-10.3); Magnesium 2.3 mg/dL (1.9-2.7); Potassium 3.8 mmol/L (3.5-5.0); eGFR CKD-EPI 39.4 (>60)
[2021-08-22] MEDS ORDERED: KCL 20 MEQ/100 ML IVPREMIX 20 MEQ/100 ML BAG IV ONE (14:00)
[2021-08-22] MEDS ORDERED: Rocuronium 50 mg VIAL 10 mg/ml 5 ml VIAL (50 mg) ONE ×2 (14:17→16:11)
[2021-08-22] MEDS ORDERED: fentaNYL 250 mcg/5 ml 50 MCG/ML 5 ml VIAL (250 MCG) ONE (14:17)
[2021-08-22] MEDS ORDERED: Dexamethasone IV 4 MG/ML VIAL 1 ml VIAL ONE ×2 (14:17→16:34)
[2021-08-22] MEDS ORDERED: Midazolam 2 mg/2 ml VIAL 1 mg/ml 2 ml VIAL (2 mg) ONE (14:17)
[2021-08-22] MEDS ORDERED: Ondansetron 4 mg VIAL 2 MG/ML 2 ml VIAL ONE ×2 (14:17→16:34)
[2021-08-22] MEDS ORDERED: Lidocaine 2% PF 5 ML VIAL ONE (14:17)
[2021-08-22] MEDS ORDERED: Propofol 10 MG/ML 20 ML BTL ONE (14:17)
[2021-08-22] MEDS ORDERED: diPHENhydraMINE 25 mg TAB PO PRN (16:14)
[2021-08-22] MEDS ORDERED: Lactulose 30 ml UDC PO PRN (16:14)
[2021-08-22] MEDS ORDERED: Ondansetron ODT 4 mg TAB 4 MG TAB PO PRN (16:14)
[2021-08-22] MEDS ORDERED: diPHENhydraMINE IV 50 MG/ML 1 ml VIAL (BENADRYL) IV PRN (16:14)
[2021-08-22] MEDS ORDERED: Ondansetron 4 mg VIAL 2 MG/ML 2 ml VIAL IV PRN (16:14)
[2021-08-22] MEDS ORDERED: Magnesium Hydroxide LIQ 30 ML UDC PO PRN (16:14)
[2021-08-22] MEDS ORDERED: ROPIVACAINE 5 MG/ML 30 ML BTL (0.5%) ONE (16:22)
[2021-08-22] MEDS ORDERED: DiMENhydriNATE IV 50 mg/ml 1 ml VIAL IV PUSH PRN (16:25)
[2021-08-22] MEDS ORDERED: fentaNYL 100 mcg/2 ml 50 MCG/ML VIAL IV PRN (16:25)
[2021-08-22] MEDS ORDERED: Naloxone 0.4 mg VIAL 0.4 mg/ml 1 ml VIAL IV PRN (16:25)
[2021-08-22] MEDS ORDERED: HYDROmorphone 0.5 MG/0.5 ML SYRINGE ONE (16:34)
[2021-08-22] MEDS ORDERED: Phenylephrine 40 mcg/mL 10mL (400mcg) SYRINGE ONE (17:11)
[2021-08-22] MEDS ORDERED: Acetaminophen IV 1 GM/100ML 100 ML IV ONE (17:14)
[2021-08-22] MEDS: Lactated Ringers 1000 ml BAG 1,000 ML IV SCH (20:23)
[2021-08-22] MEDS: Magnesium Hydroxide LIQ 30 ML UDC PO SCH (22:30)
[2021-08-22 22:33] LABS: ABS Lymphocytes 0.3 10^3/ul (1.0-4.8); ABS Monocytes 0.2 10^3/ul (0-0.8); ABS Neutrophils 4.3 10^3/ul (1.5-7.7); Hematocrit 28 % (42-52); Hemoglobin 9.6 g/dL (14.0-18.0); Lymphocyte % 6.3 %; Mean Corpuscular HGB Conc 34 g/dL (31-36); Mean Corpuscular Hemoglobin 34 pg (27-31); Mean Corpuscular Volume 100 fL (80-94); Platelet Count 110 10^3/uL (150-450); Red Blood Count 2.84 10^6 /uL (4.18-5.48); Red Cell Distribution Width 14 % (10-15); White Blood Count 4.8 10^3/uL (3.5-10.8)
[2021-08-23] MEDS: Clindamycin 600 MG/D5W BAG 600 MG/50 ML BAG IV SCH ×3 (01:12→15:52)
[2021-08-23 06:16] LABS: Hematocrit 28 % (42-52); Hemoglobin 9.2 g/dL (14.0-18.0); Mean Platelet Volume 8.2 fL (7.4-10.4); Platelet Count 126 10^3/uL (150-450)
[2021-08-23 06:31] LABS: eGFR CKD-EPI 37.3 (>60)
[2021-08-23] MEDS: Lactated Ringers 1000 ml BAG 1,000 ML IV SCH (07:24)
[2021-08-23] MEDS ORDERED: CMCS: Epleronone 25 mg TAB (NF) PO SCH (09:00)
[2021-08-23] MEDS: Potassium Chlor 20 meq TAB.ER PO SCH (09:25)
[2021-08-23] MEDS: Vitamin THERAPEUTIC TAB PO SCH (09:25)
[2021-08-23] MEDS: Magnesium Hydroxide LIQ 30 ML UDC PO SCH ×2 (09:26→21:23)
[2021-08-23] MEDS ORDERED: NS 0.9% 1000 ml BAG 1,000 ML IV ONE (11:14)
[2021-08-23 12:56] LABS: Hematocrit 28 % (42-52); Hemoglobin 9.2 g/dL (14.0-18.0)
[2021-08-24 06:12] LABS: Hematocrit 26 % (42-52); Hemoglobin 8.7 g/dL (14.0-18.0); Mean Platelet Volume 7.7 fL (7.4-10.4); Platelet Count 121 10^3/uL (150-450)
[2021-08-24 06:27] LABS: Calcium 8.9 mg/dL (8.6-10.3); Potassium 4.5 mmol/L (3.5-5.0); eGFR CKD-EPI 24.1 (>60)
[2021-08-24] MEDS: Magnesium Hydroxide LIQ 30 ML UDC PO SCH ×2 (09:00→21:43)
[2021-08-24] MEDS: Potassium Chlor 20 meq TAB.ER PO SCH (09:00)
[2021-08-24] MEDS: Vitamin THERAPEUTIC TAB PO SCH (09:00)
[2021-08-24] MEDS ORDERED: NS 0.9% 1000 ml BAG 1,000 ML IV ONE (09:10)
[2021-08-24] MEDS ORDERED: NS 0.9% 1000 ml BAG 1,000 ML IV SCH (11:00)
[2021-08-25 05:25] LABS: Hematocrit 25 % (42-52); Hemoglobin 8.4 g/dL (14.0-18.0); Mean Platelet Volume 7.7 fL (7.4-10.4); Platelet Count 112 10^3/uL (150-450)
[2021-08-25 05:40] LABS: Calcium 8.4 mg/dL (8.6-10.3); Potassium 4.5 mmol/L (3.5-5.0); eGFR CKD-EPI 24.3 (>60)
[2021-08-25] MEDS: Potassium Chlor 20 meq TAB.ER PO SCH (11:01)
[2021-08-25] MEDS: Vitamin THERAPEUTIC TAB PO SCH (11:02)
[2021-08-25 15:16] LABS: Calcium 8.9 mg/dL (8.6-10.3); Potassium 4.9 mmol/L (3.5-5.0); eGFR CKD-EPI 26.3 (>60)
[2021-08-26 05:19] LABS: Hematocrit 26 % (42-52); Hemoglobin 8.5 g/dL (14.0-18.0); Mean Platelet Volume 8.1 fL (7.4-10.4); Platelet Count 139 10^3/uL (150-450)
[2021-08-26 05:34] LABS: Calcium 8.8 mg/dL (8.6-10.3); Potassium 4.8 mmol/L (3.5-5.0); eGFR CKD-EPI 30.2 (>60)
[2021-08-26] MEDS: Vitamin THERAPEUTIC TAB PO SCH (09:02)
[2021-08-26] MEDS: Potassium Chlor 20 meq TAB.ER PO SCH (09:02)
[2021-08-27 06:14] LABS: Hematocrit 24 % (42-52); Hemoglobin 8.1 g/dL (14.0-18.0); Mean Platelet Volume 7.8 fL (7.4-10.4); Platelet Count 142 10^3/uL (150-450)
[2021-08-27 06:37] LABS: Calcium 8.6 mg/dL (8.6-10.3); Potassium 4.9 mmol/L (3.5-5.0); eGFR CKD-EPI 32.9 (>60)
[2021-08-27] MEDS: Vitamin THERAPEUTIC TAB PO SCH (08:19)
[2021-08-27] MEDS: Potassium Chlor 20 meq TAB.ER PO SCH (08:20)
[2021-08-27 08:39] VITALS: BP 98/56
== END 2021-08-27 13:50 | disposition home or self-care (01) | DRG 981 ==
LOC: SSU 12:36 → OR 12:36
PROVIDERS: ADMIT Orthopaedic Surgery Adult Reconstructive Orthopaedic Surgery; ATTEND Orthopaedic Surgery Adult Reconstructive Orthopaedic Surgery

== ENCOUNTER 2022-07-30 10:40 | Observation (INO) ==
[2022-07-30 11:53] LABS: Urine Appearance Clear; Urine Bilirubin Negative (Negative); Urine Blood Negative (Negative); Urine Color Yellow; Urine Glucose 1+(50 mg/dL) (Negative); Urine Ketones Negative (Negative); Urine Nitrite Negative (Negative); Urine Protein Negative (Negative); Urine Specific Gravity 1.008 (1.002-1.030); Urine Urobilinogen Negative (Negative)
[2022-07-30 11:54] LABS: ABS Lymphocytes 0.6 10^3/ul (1.0-4.8); ABS Monocytes 0.4 10^3/ul (0-0.8); ABS Neutrophils 3.2 10^3/ul (1.5-7.7); Eosinophil % 0.6 %; Hematocrit 34 % (42-52); Hemoglobin 11.5 g/dL (14.0-18.0); Lymphocyte % 14.2 %; Mean Corpuscular HGB Conc 34 g/dL (31-36); Mean Corpuscular Hemoglobin 34 pg (27-31); Mean Corpuscular Volume 100 fL (80-94); Mean Platelet Volume 7.4 fL (7.4-10.4); Platelet Count 124 10^3/uL (150-450); Red Blood Count 3.41 10^6 /uL (4.18-5.48); Red Cell Distribution Width 15 % (10-15); White Blood Count 4.3 10^3/uL (3.5-10.8)
[2022-07-30 11:59] LABS: INR 1.97 (0.88-1.18)
[2022-07-30 12:28] LABS: Albumin 4.1 g/dL (3.2-5.2); Albumin/Globulin Ratio 1.3 (1-3); C Reactive Protein 7.85 mg/L (<8.01); Calcium 9.5 mg/dL (8.6-10.3); Creatinine, Serum 2.81 mg/dL (0.67-1.17); Globulin 3.1 g/dL (2-4); Magnesium 2.6 mg/dL (1.9-2.7); Phosphorus 4.4 mg/dL (2.5-5.0); Potassium 2.9 mmol/L (3.5-5.0); Total Bilirubin 2.3 mg/dL (0.2-1.0); Total Protein 7.2 g/dL (6.4-8.9); eGFR CKD-EPI 22.2 (>60)
[2022-07-30] MEDS ORDERED: Potassium Chlor 20 meq TAB.ER PO ONE (12:37)
[2022-07-30] MEDS ORDERED: NS 0.9% 1000 ml BAG 1,000 ML IV ONE (12:38)
[2022-07-30 13:19] LABS: High Sensitivity Troponin 1 Hr 102 pg/mL (<20)
[2022-07-30] MEDS: KCL 10 MEQ/50 ML IVPREMIX 10 MEQ/50 ML BAG IV SCH ×2 (13:26→15:37)
[2022-07-30 14:57] LABS: Hematocrit 29 % (42-52); Hemoglobin 9.8 g/dL (14.0-18.0)
[2022-07-30] MEDS ORDERED: Pantoprazole VIAL 40 MG VIAL IV ONE (15:20)
[2022-07-30] MEDS: NS 0.9% 1000 ml BAG 1,000 ML IV SCH (17:01)
[2022-07-30] MEDS ORDERED: Dextrose 50% Syringe 50 ml 25 GM/50 ML SYRINGE IV PUSH PRN (17:46)
[2022-07-30 18:55] LABS: Hematocrit 29 % (42-52); Hemoglobin 9.6 g/dL (14.0-18.0)
[2022-07-30] MEDS: Ammonium Lactate 12% 1 APPLIC TUBE TOPICAL SCH (20:39)
[2022-07-30 22:29] LABS: Hematocrit 25 % (42-52); Hemoglobin 8.3 g/dL (14.0-18.0)
[2022-07-30 23:15] LABS: Calcium 8.1 mg/dL (8.6-10.3); Creatinine, Serum 2.32 mg/dL (0.67-1.17); eGFR CKD-EPI 27.9 (>60)
[2022-07-30 23:52] LABS: Potassium 2.6 mmol/L (3.5-5.0)
[2022-07-31] MEDS: KCL 20 MEQ/100 ML IVPREMIX 20 MEQ/100 ML BAG IV SCH ×3 (00:53→05:10)
[2022-07-31 01:54] LABS: Hematocrit 26 % (42-52); Hemoglobin 8.6 g/dL (14.0-18.0)
[2022-07-31] MEDS: NS 0.9% 1000 ml BAG 1,000 ML IV SCH ×2 (03:52→14:33)
[2022-07-31 06:44] LABS: ABS Lymphocytes 0.6 10^3/ul (1.0-4.8); ABS Monocytes 0.4 10^3/ul (0-0.8); ABS Neutrophils 2.1 10^3/ul (1.5-7.7); Eosinophil % 1.3 %; Hematocrit 25 % (42-52); Hemoglobin 8.4 g/dL (14.0-18.0); Lymphocyte % 18.6 %; Mean Corpuscular HGB Conc 34 g/dL (31-36); Mean Corpuscular Hemoglobin 33 pg (27-31); Mean Corpuscular Volume 98 fL (80-94); Mean Platelet Volume 7.5 fL (7.4-10.4); Platelet Count 97 10^3/uL (150-450); Red Blood Count 2.54 10^6 /uL (4.18-5.48); Red Cell Distribution Width 15 % (10-15)
[2022-07-31 06:54] LABS: Calcium 8.4 mg/dL (8.6-10.3); Creatinine, Serum 2.1 mg/dL (0.67-1.17); Potassium 3.1 mmol/L (3.5-5.0); eGFR CKD-EPI 31.4 (>60)
[2022-07-31 08:19] LABS: Magnesium 2.3 mg/dL (1.9-2.7)
[2022-07-31] MEDS ORDERED: Potassium EFFERVES 25 meq TAB PO ONE (09:30)
[2022-07-31] MEDS: Pantoprazole VIAL 40 MG VIAL IV SCH ×2 (10:51→20:22)
[2022-07-31] MEDS: Ammonium Lactate 12% 1 APPLIC TUBE TOPICAL SCH ×3 (10:53→20:21)
[2022-07-31] MEDS: Potassium Chlor 20 meq TAB.ER PO SCH (10:53)
[2022-07-31 13:50] LABS: Hematocrit 25 % (42-52); Hemoglobin 8.5 g/dL (14.0-18.0)
[2022-07-31 14:22] LABS: Calcium 8.6 mg/dL (8.6-10.3); Creatinine, Serum 1.99 mg/dL (0.67-1.17); Potassium 3.2 mmol/L (3.5-5.0); eGFR CKD-EPI 33.5 (>60)
[2022-08-01] MEDS: NS 0.9% 1000 ml BAG 1,000 ML IV SCH (00:42)
[2022-08-01 06:21] LABS: Hematocrit 25 % (42-52); Hemoglobin 8.3 g/dL (14.0-18.0); Mean Corpuscular HGB Conc 33 g/dL (31-36); Mean Corpuscular Hemoglobin 33 pg (27-31); Mean Corpuscular Volume 99 fL (80-94); Red Blood Count 2.54 10^6 /uL (4.18-5.48); Red Cell Distribution Width 16 % (10-15); White Blood Count 3.5 10^3/uL (3.5-10.8)
[2022-08-01 06:22] LABS: ABS Lymphocytes 0.8 10^3/ul (1.0-4.8); ABS Monocytes 0.5 10^3/ul (0-0.8); ABS Neutrophils 2.2 10^3/ul (1.5-7.7); Eosinophil % 1.2 %; Lymphocyte % 22.8 %
[2022-08-01 06:29] LABS: Albumin 3.3 g/dL (3.2-5.2); Albumin/Globulin Ratio 1.4 (1-3); Calcium 8.6 mg/dL (8.6-10.3); Creatinine, Serum 1.81 mg/dL (0.67-1.17); Globulin 2.3 g/dL (2-4); Magnesium 2.4 mg/dL (1.9-2.7); Potassium 3.1 mmol/L (3.5-5.0); Total Bilirubin 1.6 mg/dL (0.2-1.0); Total Protein 5.6 g/dL (6.4-8.9); eGFR CKD-EPI 37.6 (>60)
[2022-08-01 07:12] VITALS: BP 104/67
[2022-08-01 07:34] LABS: Mean Platelet Volume 7.3 fL (7.4-10.4); Platelet Count 99 10^3/uL (150-450)
[2022-08-01] MEDS: Potassium Chlor 20 meq TAB.ER PO SCH (07:58)
[2022-08-01] MEDS: Pantoprazole VIAL 40 MG VIAL IV SCH (07:59)
[2022-08-01] MEDS: Ammonium Lactate 12% 1 APPLIC TUBE TOPICAL SCH (08:00)
[2022-08-01] MEDS ORDERED: Potassium Chlor 20 meq TAB.ER PO ONE ×2 (08:14→09:15)
[2022-08-01] MEDS ORDERED: KCL 20 MEQ/100 ML IVPREMIX 20 MEQ/100 ML BAG IV SCH (09:00)
== END 2022-08-01 10:30 | disposition home or self-care (01) ==
LOC: ED 10:40 → EDHOLD 10:40 → SUATTDRO 14:02 → EDHOLD 17:42 → MED 18:09
PROVIDERS: ADMIT Internal Medicine; ATTEND Internal Medicine

== ENCOUNTER 2023-05-05 11:52 | Inpatient (IN) ==
[2023-05-05 12:39] LABS: ABS Lymphocytes 0.4 10^3/uL (1.0-4.8); ABS Monocytes 0.5 10^3/uL (0.0-1.1); ABS Neutrophils 3.7 10^3/uL (1.5-7.6); ABS Nucleated RBC 0.01 10^3/ul; Eosinophil % 0.2 %; Hematocrit 33.4 % (38-53); Hemoglobin 10.9 g/dL (13.2-16.3); Lymphocyte % 9.3 %; Mean Corpuscular Hemoglobin 30.1 pg (27-33); Mean Corpuscular Hgb Conc 32.8 g/dL (31-36); Mean Corpuscular Volume 91.8 fL (80-97); Mean Platelet Volume 7.8 fL (7.5-11.2); Nucleated Red Blood Cells % 0.1 %/100WBC (0.0-0.8); Platelet Count 197 10^3/uL (150-450); Red Blood Count 3.64 10^6/uL (4.06-5.63); Red Cell Distribution Width 19.4 % (12-17); White Blood Count 4.7 10^3/uL (3.6-10.2)
[2023-05-05 13:14] LABS: Albumin 3.6 g/dL (3.2-5.2); Calcium 9.5 mg/dL (8.6-10.3); Magnesium 2.6 mg/dL (1.9-2.7); Potassium 5.5 mmol/L (3.5-5.0); Total Bilirubin 2.6 mg/dL (0.2-1.0)
[2023-05-05 13:20] LABS: Albumin/Globulin Ratio 0.9 (1-3); Creatinine, Serum 4.25 mg/dL (0.67-1.17); Globulin 3.8 g/dL (2-4); Total Protein 7.4 g/dL (6.4-8.9); eGFR CKD-EPI 13.4 (>60)
[2023-05-05 14:13] LABS: High Sensitivity Troponin 1 Hr 153 pg/mL (<20)
[2023-05-05] MEDS ORDERED: Bumetanide IV 0.25 MG/ML 4 ml VIAL (1 mg) IV SLOW PU ONE (14:36)
[2023-05-06] MEDS: Bumetanide IV 0.25 MG/ML 4 ml VIAL (1 mg) IV SLOW PU SCH ×2 (05:28→17:14)
[2023-05-06 06:04] LABS: Hemoglobin 10.2 g/dL (13.2-16.3); Mean Corpuscular Hemoglobin 29.8 pg (27-33); Mean Corpuscular Hgb Conc 33.1 g/dL (31-36); Mean Corpuscular Volume 90.1 fL (80-97); Mean Platelet Volume 8.1 fL (7.5-11.2); Platelet Count 173 10^3/uL (150-450); Red Blood Count 3.44 10^6/uL (4.06-5.63); Red Cell Distribution Width 19.1 % (12-17); White Blood Count 5.5 10^3/uL (3.6-10.2)
[2023-05-06 06:26] LABS: C Reactive Protein 55.06 mg/L (<8.01); Calcium 9.5 mg/dL (8.6-10.3); Creatinine, Serum 4.3 mg/dL (0.67-1.17); Magnesium 2.5 mg/dL (1.9-2.7); Potassium 3.9 mmol/L (3.5-5.0); eGFR CKD-EPI 13.2 (>60)
[2023-05-06] MEDS ORDERED: NS 0.9% 1000 ml BAG 100 ML IV PRN (09:41)
[2023-05-06] MEDS ORDERED: NS 0.9% 1000 ml BAG 200 ML IV PRN (09:41)
[2023-05-06] MEDS: CMCS: Febuxostat 40 mg TAB (NF) PO SCH (10:08)
[2023-05-06 11:17] LABS: Hepatitis B Surface Antigen Nonreactive (Nonreactive)
[2023-05-06 11:34] LABS: Hepatitis B Surface Ab Not Immune (Immune)
[2023-05-06 13:46] LABS: Hepatitis B Surface Antigen Nonreactive (Nonreactive)
[2023-05-06] MEDS: Heparin 1,000 UNIT/ML 10 ml (10,000 UNITS) CATHLAB/DIALYSIS DIALYSIS PRN ×3 (14:46→16:48)
[2023-05-07] MEDS: Bumetanide IV 0.25 MG/ML 4 ml VIAL (1 mg) IV SLOW PU SCH ×2 (05:02→14:36)
[2023-05-07 06:20] LABS: Calcium 8.6 mg/dL (8.6-10.3); Creatinine, Serum 3.52 mg/dL (0.67-1.17); Potassium 3.4 mmol/L (3.5-5.0); eGFR CKD-EPI 16.8 (>60)
[2023-05-07] MEDS: CMCS: Febuxostat 40 mg TAB (NF) PO SCH (07:51)
[2023-05-07] MEDS: Heparin 1,000 UNIT/ML 10 ml (10,000 UNITS) CATHLAB/DIALYSIS DIALYSIS PRN ×4 (08:52→12:05)
[2023-05-07] MEDS: Albumin Human 25% 25 GM/100 ML BTL IV PRN ×2 (09:12→10:55)
[2023-05-07 18:07] LABS: Hepatitis B Core IgM Nonreactive (Nonreactive)
[2023-05-08] MEDS: Bumetanide IV 0.25 MG/ML 4 ml VIAL (1 mg) IV SLOW PU SCH ×2 (05:49→14:33)
[2023-05-08 09:16] LABS: Hematocrit 28.3 % (38-53); Hemoglobin 9.4 g/dL (13.2-16.3); Mean Corpuscular Hemoglobin 29.9 pg (27-33); Mean Corpuscular Hgb Conc 33.3 g/dL (31-36); Mean Platelet Volume 8.1 fL (7.5-11.2); Platelet Count 148 10^3/uL (150-450); Red Blood Count 3.15 10^6/uL (4.06-5.63); Red Cell Distribution Width 19.1 % (12-17); White Blood Count 4.8 10^3/uL (3.6-10.2)
[2023-05-08 09:30] LABS: Calcium 8.8 mg/dL (8.6-10.3); Creatinine, Serum 3.29 mg/dL (0.67-1.17); Magnesium 2.1 mg/dL (1.9-2.7); Potassium 3.5 mmol/L (3.5-5.0); eGFR CKD-EPI 18.2 (>60)
[2023-05-08] MEDS: CMCS: Febuxostat 40 mg TAB (NF) PO SCH (10:07)
[2023-05-08] MEDS ORDERED: Clindamycin 900 MG/50 **NS BAG 900 MG/50 ML BAG ONE (15:12)
[2023-05-08] MEDS ORDERED: Norepinephrine IV 1 MG/ML 4 ML VIAL ONE (16:04)
[2023-05-08] MEDS ORDERED: Bupivacaine 0.25% SDV 30 ML ONE (16:32)
[2023-05-08] MEDS ORDERED: Heparin *DIALYSIS* ONLY 1,000 UNITS/ML VIAL ONE (16:32)
[2023-05-08] MEDS ORDERED: Norepinephrine 4 MG/250mL D5W 4,000 MCG/250 ML BAG IV ONE (16:38)
[2023-05-08] MEDS ORDERED: fentaNYL 250 mcg/5 ml 50 MCG/ML 5 ml VIAL (250 MCG) ONE (16:51)
[2023-05-08] MEDS ORDERED: Midazolam 2 mg/2 ml VIAL 1 mg/ml 2 ml VIAL (2 mg) ONE (16:52)
[2023-05-08] MEDS ORDERED: fentaNYL 100 mcg/2 ml 50 MCG/ML VIAL ONE (16:52)
[2023-05-08] MEDS ORDERED: KETAMINE HCL 10 MG/ML 20 ml VIAL (200 MG) ONE (16:54)
[2023-05-08] MEDS ORDERED: Rocuronium 50 mg VIAL 10 mg/ml 5 ml VIAL (50 mg) ONE (16:58)
[2023-05-08] MEDS ORDERED: Dexamethasone IV 4 MG/ML VIAL 1 ml VIAL ONE (17:00)
[2023-05-08] MEDS ORDERED: Ondansetron 4 mg VIAL 2 MG/ML 2 ml VIAL ONE (17:00)
[2023-05-08] MEDS ORDERED: Propofol 10 MG/ML 20 ML BTL ONE (17:00)
[2023-05-08] MEDS ORDERED: Lidocaine 2% PF 5 ML VIAL ONE (17:03)
[2023-05-08] MEDS ORDERED: Naloxone 0.4 mg VIAL 0.4 mg/ml 1 ml VIAL IV PRN (18:56)
[2023-05-08] MEDS ORDERED: HYDROmorphone 1 MG/1 ML SYRINGE IV PRN (18:56)
[2023-05-08] MEDS ORDERED: Ondansetron 4 mg VIAL 2 MG/ML 2 ml VIAL IV PRN (18:56)
[2023-05-08] MEDS ORDERED: fentaNYL 100 mcg/2 ml 50 MCG/ML VIAL IV PRN (18:56)
[2023-05-08] MEDS ORDERED: Morphine 2 MG/ML SYRINGE IV PRN (20:55)
[2023-05-09] MEDS: Bumetanide IV 0.25 MG/ML 4 ml VIAL (1 mg) IV SLOW PU SCH ×2 (05:21→15:47)
[2023-05-09 05:54] LABS: Hematocrit 30.5 % (38-53); Hemoglobin 10.1 g/dL (13.2-16.3); Mean Corpuscular Hemoglobin 30.2 pg (27-33); Mean Corpuscular Volume 91.5 fL (80-97); Mean Platelet Volume 7.9 fL (7.5-11.2); Platelet Count 150 10^3/uL (150-450); Red Blood Count 3.34 10^6/uL (4.06-5.63); Red Cell Distribution Width 19.2 % (12-17); White Blood Count 2.9 10^3/uL (3.6-10.2)
[2023-05-09 06:27] LABS: Calcium 8.8 mg/dL (8.6-10.3); Potassium 3.8 mmol/L (3.5-5.0)
[2023-05-09 06:33] LABS: Creatinine, Serum 3.63 mg/dL (0.67-1.17); eGFR CKD-EPI 16.2 (>60)
[2023-05-09] MEDS: CMCS: Febuxostat 40 mg TAB (NF) PO SCH (09:27)
[2023-05-09] MEDS: Heparin 1,000 UNIT/ML 10 ml (10,000 UNITS) CATHLAB/DIALYSIS DIALYSIS PRN ×5 (10:30→14:45)
[2023-05-09] MEDS: Albumin Human 25% 25 GM/100 ML BTL IV PRN ×2 (10:45→12:56)
[2023-05-09 12:47] LABS: TB1 Ag minus Nil Result -0.03 IU/mL
[2023-05-09 14:04] LABS: QuantiferonTb Gold Plus Result Negative (Negative)
[2023-05-09] MEDS: Heparin 5000 UNITS/ML 1 mL VIAL SUBCUT SCH ×2 (15:22→22:47)
[2023-05-10 05:29] LABS: Hematocrit 27.7 % (38-53); Hemoglobin 9.2 g/dL (13.2-16.3); Mean Corpuscular Hemoglobin 30.2 pg (27-33); Mean Corpuscular Hgb Conc 33.2 g/dL (31-36); Mean Corpuscular Volume 90.7 fL (80-97); Mean Platelet Volume 7.5 fL (7.5-11.2); Platelet Count 134 10^3/uL (150-450); Red Blood Count 3.05 10^6/uL (4.06-5.63); Red Cell Distribution Width 19.4 % (12-17); White Blood Count 6.7 10^3/uL (3.6-10.2)
[2023-05-10 05:46] LABS: Creatinine, Serum 3.55 mg/dL (0.67-1.17); Phosphorus 3.8 mg/dL (2.5-5.0); eGFR CKD-EPI 16.6 (>60)
[2023-05-10] MEDS: Bumetanide IV 0.25 MG/ML 4 ml VIAL (1 mg) IV SLOW PU SCH ×2 (05:57→16:42)
[2023-05-10] MEDS: Heparin 5000 UNITS/ML 1 mL VIAL SUBCUT SCH ×3 (05:59→22:01)
[2023-05-10] MEDS: CMCS: Febuxostat 40 mg TAB (NF) PO SCH (08:45)
[2023-05-10] MEDS: Heparin 1,000 UNIT/ML 10 ml (10,000 UNITS) CATHLAB/DIALYSIS DIALYSIS PRN ×4 (09:10→13:25)
[2023-05-10] MEDS: Albumin Human 25% 25 GM/100 ML BTL IV PRN ×2 (09:47→11:21)
[2023-05-10] MEDS ORDERED: Prochlorperazine 5 mg/ml 2 ml VIAL (10 mg) IV PRN (16:46)
[2023-05-11] MEDS: Bumetanide IV 0.25 MG/ML 4 ml VIAL (1 mg) IV SLOW PU SCH ×2 (05:35→15:30)
[2023-05-11] MEDS: Heparin 5000 UNITS/ML 1 mL VIAL SUBCUT SCH ×3 (05:35→21:46)
[2023-05-11] MEDS: Heparin 1,000 UNIT/ML 10 ml (10,000 UNITS) CATHLAB/DIALYSIS DIALYSIS PRN ×5 (05:50→09:49)
[2023-05-11] MEDS: CMCS: Febuxostat 40 mg TAB (NF) PO SCH (11:11)
[2023-05-12] MEDS: Bumetanide IV 0.25 MG/ML 4 ml VIAL (1 mg) IV SLOW PU SCH ×2 (05:38→14:18)
[2023-05-12] MEDS: Heparin 5000 UNITS/ML 1 mL VIAL SUBCUT SCH ×3 (05:43→22:21)
[2023-05-12 08:42] LABS: Calcium 8.9 mg/dL (8.6-10.3); Creatinine, Serum 3.02 mg/dL (0.67-1.17); Magnesium 1.9 mg/dL (1.9-2.7); Potassium 4.2 mmol/L (3.5-5.0); eGFR CKD-EPI 20.2 (>60)
[2023-05-12] MEDS: CMCS: Febuxostat 40 mg TAB (NF) PO SCH (10:21)
[2023-05-13] MEDS: Heparin 5000 UNITS/ML 1 mL VIAL SUBCUT SCH ×3 (05:45→22:32)
[2023-05-13] MEDS: Bumetanide IV 0.25 MG/ML 4 ml VIAL (1 mg) IV SLOW PU SCH ×2 (05:46→15:00)
[2023-05-13 06:07] LABS: Hematocrit 29.9 % (38-53); Mean Corpuscular Hemoglobin 30.3 pg (27-33); Mean Corpuscular Hgb Conc 33.5 g/dL (31-36); Mean Corpuscular Volume 90.5 fL (80-97); Mean Platelet Volume 7.8 fL (7.5-11.2); Platelet Count 137 10^3/uL (150-450); Red Blood Count 3.31 10^6/uL (4.06-5.63); Red Cell Distribution Width 19.6 % (12-17)
[2023-05-13 07:10] LABS: Creatinine, Serum 3.92 mg/dL (0.67-1.17); Phosphorus 4.8 mg/dL (2.5-5.0); Potassium 4.3 mmol/L (3.5-5.0); eGFR CKD-EPI 14.8 (>60)
[2023-05-13] MEDS: CMCS: Febuxostat 40 mg TAB (NF) PO SCH (08:33)
[2023-05-13] MEDS: Heparin 1,000 UNIT/ML 10 ml (10,000 UNITS) CATHLAB/DIALYSIS DIALYSIS PRN ×5 (14:50→19:00)
[2023-05-14] MEDS: Heparin 5000 UNITS/ML 1 mL VIAL SUBCUT SCH ×3 (05:19→22:15)
[2023-05-14] MEDS: Bumetanide IV 0.25 MG/ML 4 ml VIAL (1 mg) IV SLOW PU SCH ×2 (05:33→14:16)
[2023-05-14 06:04] LABS: Calcium 8.9 mg/dL (8.6-10.3); Creatinine, Serum 3.12 mg/dL (0.67-1.17); Magnesium 1.9 mg/dL (1.9-2.7); Phosphorus 4.2 mg/dL (2.5-5.0); Potassium 4.1 mmol/L (3.5-5.0); eGFR CKD-EPI 19.4 (>60)
[2023-05-14] MEDS: CMCS: Febuxostat 40 mg TAB (NF) PO SCH (10:15)
[2023-05-14] MEDS: Petroleum Jelly 1.75 Oz (small jar) TOPICAL PRN (22:35)
[2023-05-15] MEDS: Bumetanide IV 0.25 MG/ML 4 ml VIAL (1 mg) IV SLOW PU SCH ×2 (05:52→14:35)
[2023-05-15] MEDS: Heparin 5000 UNITS/ML 1 mL VIAL SUBCUT SCH ×3 (05:53→22:43)
[2023-05-15 06:31] LABS: Calcium 9.2 mg/dL (8.6-10.3); Creatinine, Serum 3.74 mg/dL (0.67-1.17); Phosphorus 4.5 mg/dL (2.5-5.0); Potassium 4.4 mmol/L (3.5-5.0); eGFR CKD-EPI 15.6 (>60)
[2023-05-15] MEDS: CMCS: Febuxostat 40 mg TAB (NF) PO SCH (08:23)
[2023-05-15] MEDS ORDERED: CMCS:Febuxostat 40 mg TAB (NF) PO ONE (09:57)
[2023-05-15] MEDS: Heparin 1,000 UNIT/ML 10 ml (10,000 UNITS) CATHLAB/DIALYSIS DIALYSIS PRN ×4 (10:40→14:05)
[2023-05-15 15:29] LABS: Uric Acid 2.1 mg/dL (4.4-7.6)
[2023-05-15] MEDS ORDERED: Al Hydrox/Mg Hydrox/Simet LIQ 30 ML UDC PO ONE (17:56)
[2023-05-15] MEDS: Petroleum Jelly 1.75 Oz (small jar) TOPICAL PRN (22:51)
[2023-05-16] MEDS: Heparin 5000 UNITS/ML 1 mL VIAL SUBCUT SCH ×3 (06:17→21:42)
[2023-05-16] MEDS: Bumetanide IV 0.25 MG/ML 4 ml VIAL (1 mg) IV SLOW PU SCH ×2 (06:17→15:29)
[2023-05-16 06:36] LABS: ABS Lymphocytes 0.5 10^3/uL (1.0-4.8); ABS Monocytes 0.2 10^3/uL (0.0-1.1); ABS Neutrophils 2.8 10^3/uL (1.5-7.6); ABS Nucleated RBC 0.01 10^3/ul; Eosinophil % 0.1 %; Hemoglobin 9.9 g/dL (13.2-16.3); Lymphocyte % 13.3 %; Mean Corpuscular Hemoglobin 29.9 pg (27-33); Mean Corpuscular Hgb Conc 33.1 g/dL (31-36); Mean Corpuscular Volume 90.4 fL (80-97); Mean Platelet Volume 7.1 fL (7.5-11.2); Nucleated Red Blood Cells % 0.2 %/100WBC (0.0-0.8); Platelet Count 153 10^3/uL (150-450); Red Blood Count 3.32 10^6/uL (4.06-5.63); Red Cell Distribution Width 19.1 % (12-17); White Blood Count 3.5 10^3/uL (3.6-10.2)
[2023-05-16 07:23] LABS: Calcium 8.8 mg/dL (8.6-10.3); Potassium 4.9 mmol/L (3.5-5.0)
[2023-05-16 07:28] LABS: Creatinine, Serum 3.17 mg/dL (0.67-1.17); eGFR CKD-EPI 19.1 (>60)
[2023-05-16] MEDS: CMCS:Febuxostat 40 mg TAB (NF) PO SCH (08:36)
[2023-05-16] MEDS ORDERED: Albumin Human 25% 25 GM/100 ML BTL IV PRN (14:43)
[2023-05-16] MEDS ORDERED: NS 0.9% 1000 ml BAG 100 ML IV PRN (14:43)
[2023-05-16] MEDS ORDERED: NS 0.9% 1000 ml BAG 200 ML IV PRN (14:43)
[2023-05-16] MEDS ORDERED: Heparin 1,000 UNIT/ML 10 ml (10,000 UNITS) CATHLAB/DIALYSIS DIALYSIS PRN (14:43)
[2023-05-16] MEDS: Heparin 1,000 UNIT/ML 10 ml (10,000 UNITS) CATHLAB/DIALYSIS DIALYSIS PRN ×5 (14:55→19:05)
[2023-05-16] MEDS: Petroleum Jelly 1.75 Oz (small jar) TOPICAL PRN (21:43)
[2023-05-17] MEDS: Heparin 5000 UNITS/ML 1 mL VIAL SUBCUT SCH ×3 (06:38→21:45)
[2023-05-17] MEDS: Bumetanide IV 0.25 MG/ML 4 ml VIAL (1 mg) IV SLOW PU SCH ×2 (06:40→18:33)
[2023-05-17] MEDS: Heparin 1,000 UNIT/ML 10 ml (10,000 UNITS) CATHLAB/DIALYSIS DIALYSIS PRN ×4 (07:49→10:49)
[2023-05-17] MEDS ORDERED: Vancomycin 1,000 MG in NS 0.9% 250 ml 250 ML IVPB ONE (10:00)
[2023-05-17] MEDS: CMCS:Febuxostat 40 mg TAB (NF) PO SCH (11:11)
[2023-05-17] MEDS ORDERED: Lidocaine 1% MPF 5 ML VIAL ONE (12:57)
[2023-05-17] MEDS ORDERED: Heparin 2 UNITS/ML 1000 mls 1,000 ML IV ONE (12:57)
[2023-05-17] MEDS ORDERED: Midazolam 5 mg/5 ml VIAL 1 mg/ml 5 ml VIAL (5 mg) ONE (13:07)
[2023-05-17] MEDS ORDERED: fentaNYL 100 mcg/2 ml 50 MCG/ML VIAL ONE (13:08)
[2023-05-17] MEDS ORDERED: Heparin 1,000 UNIT/ML 10 ml (10,000 UNITS) CATHLAB/DIALYSIS ONE (13:26)
[2023-05-17 15:16] LABS: ABS Lymphocytes 0.7 10^3/uL (1.0-4.8); ABS Monocytes 0.5 10^3/uL (0.0-1.1); ABS Neutrophils 2.5 10^3/uL (1.5-7.6); ABS Nucleated RBC 0.01 10^3/ul; Eosinophil % 0.9 %; Hematocrit 31.7 % (38-53); Hemoglobin 10.1 g/dL (13.2-16.3); Mean Corpuscular Hemoglobin 29.1 pg (27-33); Mean Corpuscular Hgb Conc 31.9 g/dL (31-36); Mean Platelet Volume 7.2 fL (7.5-11.2); Nucleated Red Blood Cells % 0.1 %/100WBC (0.0-0.8); Platelet Count 146 10^3/uL (150-450); Red Blood Count 3.48 10^6/uL (4.06-5.63); Red Cell Distribution Width 19.1 % (12-17); White Blood Count 3.7 10^3/uL (3.6-10.2)
[2023-05-17 15:36] LABS: Calcium 8.7 mg/dL (8.6-10.3); Creatinine, Serum 2.07 mg/dL (0.67-1.17); Phosphorus 2.5 mg/dL (2.5-5.0); Potassium 3.2 mmol/L (3.5-5.0); eGFR CKD-EPI 31.8 (>60)
[2023-05-18] MEDS: Heparin 5000 UNITS/ML 1 mL VIAL SUBCUT SCH ×3 (06:20→22:00)
[2023-05-18] MEDS: Bumetanide IV 0.25 MG/ML 4 ml VIAL (1 mg) IV SLOW PU SCH ×2 (06:35→14:52)
[2023-05-18 06:41] LABS: ABS Lymphocytes 0.5 10^3/uL (1.0-4.8); ABS Monocytes 0.8 10^3/uL (0.0-1.1); ABS Neutrophils 3.2 10^3/uL (1.5-7.6); ABS Nucleated RBC 0.01 10^3/ul; Eosinophil % 0.8 %; Hematocrit 28.7 % (38-53); Hemoglobin 9.5 g/dL (13.2-16.3); Mean Corpuscular Hgb Conc 33.1 g/dL (31-36); Mean Corpuscular Volume 90.5 fL (80-97); Mean Platelet Volume 6.7 fL (7.5-11.2); Nucleated Red Blood Cells % 0.2 %/100WBC (0.0-0.8); Platelet Count 133 10^3/uL (150-450); Red Blood Count 3.17 10^6/uL (4.06-5.63); Red Cell Distribution Width 19.2 % (12-17); White Blood Count 4.5 10^3/uL (3.6-10.2)
[2023-05-18 06:57] LABS: Calcium 8.5 mg/dL (8.6-10.3); Creatinine, Serum 2.86 mg/dL (0.67-1.17); Magnesium 1.8 mg/dL (1.9-2.7); Phosphorus 3.4 mg/dL (2.5-5.0); Potassium 3.6 mmol/L (3.5-5.0); eGFR CKD-EPI 21.6 (>60)
[2023-05-18] MEDS: CMCS:Febuxostat 40 mg TAB (NF) PO SCH (09:28)
[2023-05-18] MEDS: Heparin 1,000 UNIT/ML 10 ml (10,000 UNITS) CATHLAB/DIALYSIS DIALYSIS PRN ×4 (09:50→14:10)
[2023-05-18] MEDS ORDERED: Hemorrhoidal OINT 1 TUBE PR PRN (17:45)
[2023-05-19] MEDS: Bumetanide IV 0.25 MG/ML 4 ml VIAL (1 mg) IV SLOW PU SCH ×2 (06:25→14:20)
[2023-05-19] MEDS: Heparin 5000 UNITS/ML 1 mL VIAL SUBCUT SCH ×3 (06:47→22:00)
[2023-05-19] MEDS: CMCS:Febuxostat 40 mg TAB (NF) PO SCH (08:23)
[2023-05-19] MEDS: Heparin 1,000 UNIT/ML 10 ml (10,000 UNITS) CATHLAB/DIALYSIS DIALYSIS PRN ×5 (13:55→18:20)
[2023-05-20] MEDS: Bumetanide IV 0.25 MG/ML 4 ml VIAL (1 mg) IV SLOW PU SCH ×2 (06:04→15:42)
[2023-05-20] MEDS: Heparin 5000 UNITS/ML 1 mL VIAL SUBCUT SCH ×3 (06:21→22:47)
[2023-05-20] MEDS: Heparin 1,000 UNIT/ML 10 ml (10,000 UNITS) CATHLAB/DIALYSIS DIALYSIS PRN ×5 (07:37→12:14)
[2023-05-20] MEDS: CMCS:Febuxostat 40 mg TAB (NF) PO SCH (12:11)
[2023-05-20] MEDS ORDERED: NS 0.9% 1000 ml BAG 100 ML IV PRN (16:33)
[2023-05-20] MEDS ORDERED: NS 0.9% 1000 ml BAG 200 ML IV PRN (16:33)
[2023-05-20] MEDS ORDERED: witch hazeL 43% TOP.SOLN 200 ML PHA COMPOUND TOPICAL SCH (20:00)
[2023-05-20] MEDS: Witch Hazel PAD JAR TOPICAL SCH (22:49)
[2023-05-21] MEDS: Bumetanide IV 0.25 MG/ML 4 ml VIAL (1 mg) IV SLOW PU SCH ×2 (05:47→15:00)
[2023-05-21] MEDS: Heparin 5000 UNITS/ML 1 mL VIAL SUBCUT SCH ×3 (05:48→22:01)
[2023-05-21] MEDS: Heparin 1,000 UNIT/ML 10 ml (10,000 UNITS) CATHLAB/DIALYSIS DIALYSIS PRN ×4 (08:05→12:20)
[2023-05-21] MEDS: CMCS:Febuxostat 40 mg TAB (NF) PO SCH (13:27)
[2023-05-21] MEDS: Witch Hazel PAD JAR TOPICAL SCH (15:54)
[2023-05-22] MEDS ORDERED: NS 0.9% 250 ml 250 ML IV ONE ×2 (02:43→05:20)
[2023-05-22] MEDS: Heparin 5000 UNITS/ML 1 mL VIAL SUBCUT SCH ×2 (05:26→15:03)
[2023-05-22] MEDS: Bumetanide IV 0.25 MG/ML 4 ml VIAL (1 mg) IV SLOW PU SCH ×2 (06:05→14:15)
[2023-05-22] MEDS: Heparin 1,000 UNIT/ML 10 ml (10,000 UNITS) CATHLAB/DIALYSIS DIALYSIS PRN ×4 (08:19→12:40)
[2023-05-22] MEDS: Albumin Human 25% 25 GM/100 ML BTL IV PRN ×2 (09:56→11:41)
[2023-05-22] MEDS: CMCS:Febuxostat 40 mg TAB (NF) PO SCH (13:46)
[2023-05-22] MEDS: Witch Hazel PAD JAR TOPICAL SCH (13:58)
[2023-05-22 14:22] VITALS: BP 80/51
== END 2023-05-22 16:45 | disposition home or self-care (01) | DRG 981 ==
LOC: ED 11:52 → EDHOLD 11:52 → SUATTDRO 05-06 10:00 → MED 05-06 11:37
PROVIDERS: ADMIT Hospitalist; ATTEND Internal Medicine

== ENCOUNTER 2023-05-26 14:28 | Inpatient (IN) ==
[2023-05-26 15:18] LABS: ABS Lymphocytes 0.7 10^3/uL (1.0-4.8); ABS Monocytes 1.4 10^3/uL (0.0-1.1); ABS Neutrophils 7.7 10^3/uL (1.5-7.6); ABS Nucleated RBC 0.01 10^3/ul; Eosinophil % 0.1 %; Hematocrit 31.9 % (38-53); Hemoglobin 10.6 g/dL (13.2-16.3); Lymphocyte % 6.9 %; Mean Corpuscular Hemoglobin 29.5 pg (27-33); Mean Corpuscular Hgb Conc 33.1 g/dL (31-36); Mean Corpuscular Volume 89.2 fL (80-97); Mean Platelet Volume 7.5 fL (7.5-11.2); Nucleated Red Blood Cells % 0.1 %/100WBC (0.0-0.8); Platelet Count 176 10^3/uL (150-450); Red Blood Count 3.58 10^6/uL (4.06-5.63); Red Cell Distribution Width 19.2 % (12-17); White Blood Count 9.8 10^3/uL (3.6-10.2)
[2023-05-26 15:38] LABS: Albumin 3.7 g/dL (3.2-5.2); Albumin/Globulin Ratio 1.4 (1-3); C Reactive Protein 124.07 mg/L (<8.01); Calcium 8.6 mg/dL (8.6-10.3); Creatinine, Serum 3.67 mg/dL (0.67-1.17); Globulin 2.7 g/dL (2-4); Potassium 3.8 mmol/L (3.5-5.0); Total Bilirubin 2.1 mg/dL (0.2-1.0); Total Protein 6.4 g/dL (6.4-8.9)
[2023-05-26] MEDS ORDERED: Acetaminophen IV 1 GM/100ML 1,000 MG/100 ML BAG IV ONE (22:56)
[2023-05-26] MEDS: Lidocaine 2% JELLY 6 ML Topical TOPICAL SCH (23:34)
[2023-05-26] MEDS: Albumin Human 5% 12.5 GM/250 ML BTL IV SCH (23:39)
[2023-05-27] MEDS: Albumin Human 5% 12.5 GM/250 ML BTL IV SCH (00:13)
[2023-05-27] MEDS ORDERED: Lactated Ringers 1000 ml BAG 500 ML IV ONE (02:34)
[2023-05-27] MEDS ORDERED: Lactated Ringers 1000 ml BAG 1,000 ML IV ONE (03:42)
[2023-05-27 05:06] LABS: ABS Basophils 0.1 10^3/uL (0.0-0.1); ABS Eosinophils 0.1 10^3/uL (0.0-0.5); ABS Lymphocytes 0.9 10^3/uL (1.0-4.8); ABS Monocytes 1.2 10^3/uL (0.0-1.1); ABS Neutrophils 5.5 10^3/uL (1.5-7.6); Eosinophil % 0.7 %; Hematocrit 28.7 % (38-53); Hemoglobin 9.6 g/dL (13.2-16.3); Lymphocyte % 11.1 %; Mean Corpuscular Hemoglobin 29.7 pg (27-33); Mean Corpuscular Hgb Conc 33.4 g/dL (31-36); Mean Corpuscular Volume 89.1 fL (80-97); Mean Platelet Volume 7.7 fL (7.5-11.2); Platelet Count 160 10^3/uL (150-450); Red Blood Count 3.22 10^6/uL (4.06-5.63); Red Cell Distribution Width 18.6 % (12-17); White Blood Count 7.7 10^3/uL (3.6-10.2)
[2023-05-27 05:25] LABS: Calcium 8.3 mg/dL (8.6-10.3); Creatinine, Serum 4.37 mg/dL (0.67-1.17); Potassium 4.1 mmol/L (3.5-5.0)
[2023-05-27] MEDS: Lidocaine 2% JELLY 6 ML Topical TOPICAL SCH ×3 (08:13→22:30)
[2023-05-27] MEDS: CMCS:Febuxostat 40 mg TAB (NF) PO SCH (08:13)
[2023-05-27] MEDS ORDERED: Benzocaine/Menthol LOZ PO PRN (11:16)
[2023-05-27] MEDS: Heparin 1,000 UNIT/ML 10 ml (10,000 UNITS) CATHLAB/DIALYSIS DIALYSIS PRN ×4 (14:45→18:30)
[2023-05-27] MEDS: Albumin Human 25% 25 GM/100 ML BTL IV PRN ×2 (14:47→15:48)
[2023-05-28 04:52] LABS: ABS Lymphocytes 0.6 10^3/uL (1.0-4.8); ABS Neutrophils 3.4 10^3/uL (1.5-7.6); Eosinophil % 0.5 %; Hematocrit 27.9 % (38-53); Hemoglobin 9.3 g/dL (13.2-16.3); Lymphocyte % 11.8 %; Mean Corpuscular Hemoglobin 29.2 pg (27-33); Mean Corpuscular Hgb Conc 33.4 g/dL (31-36); Mean Corpuscular Volume 87.6 fL (80-97); Mean Platelet Volume 7.2 fL (7.5-11.2); Platelet Count 156 10^3/uL (150-450); Red Blood Count 3.19 10^6/uL (4.06-5.63); Red Cell Distribution Width 18.3 % (12-17)
[2023-05-28 05:16] LABS: Calcium 7.9 mg/dL (8.6-10.3); Creatinine, Serum 3.34 mg/dL (0.67-1.17); Magnesium 1.8 mg/dL (1.9-2.7); Potassium 3.3 mmol/L (3.5-5.0); eGFR CKD-EPI 17.9 (>60)
[2023-05-28] MEDS: CMCS:Febuxostat 40 mg TAB (NF) PO SCH (09:19)
[2023-05-28] MEDS: Lidocaine 2% JELLY 6 ML Topical TOPICAL SCH ×3 (09:20→21:45)
[2023-05-28 10:02] LABS: Albumin 3.5 g/dL (3.2-5.2); Albumin/Globulin Ratio 1.5 (1-3); Direct Bilirubin 0.6 mg/dL (0.03-0.18); Globulin 2.3 g/dL (2-4); Indirect Bilirubin 0.8 mg/dL (0.3-1.0); Total Bilirubin 1.4 mg/dL (0.2-1.0); Total Protein 5.8 g/dL (6.4-8.9)
[2023-05-29 06:12] LABS: Hematocrit 29.6 % (38-53); Hemoglobin 9.8 g/dL (13.2-16.3); Mean Corpuscular Hemoglobin 29.2 pg (27-33); Mean Corpuscular Volume 88.5 fL (80-97); Mean Platelet Volume 7.3 fL (7.5-11.2); Platelet Count 185 10^3/uL (150-450); Red Blood Count 3.34 10^6/uL (4.06-5.63)
[2023-05-29 06:17] LABS: ABS Lymphocytes 0.7 10^3/uL (1.0-4.8); ABS Monocytes 0.8 10^3/uL (0.0-1.1); ABS Neutrophils 2.4 10^3/uL (1.5-7.6); Eosinophil % 0.5 %; Lymphocyte % 16.9 %; Nucleated Red Blood Cells % 0.1 %/100WBC (0.0-0.8)
[2023-05-29 06:50] LABS: TSH Ultra Thyroid Stim Horm 1.93 mcIU/mL (0.34-5.60)
[2023-05-29 06:53] LABS: Calcium 8.8 mg/dL (8.6-10.3); Creatinine, Serum 4.66 mg/dL (0.67-1.17); Potassium 3.8 mmol/L (3.5-5.0)
[2023-05-29] MEDS ORDERED: Albumin Human 25% 25 GM/100 ML IV PRN (08:44)
[2023-05-29] MEDS: CMCS:Febuxostat 40 mg TAB (NF) PO SCH (08:57)
[2023-05-29] MEDS: Heparin 1,000 UNIT/ML 10 ml (10,000 UNITS) CATHLAB/DIALYSIS DIALYSIS PRN ×4 (09:20→12:30)
[2023-05-29] MEDS: Lidocaine 2% JELLY 6 ML Topical TOPICAL SCH ×3 (11:33→21:24)
[2023-05-30] MEDS ORDERED: Lidocaine 2% JELLY 6 ML Topical TOPICAL ONE (05:16)
[2023-05-30] MEDS: Lidocaine PATCH 5% PATCH TRANSDERM SCH (09:33)
[2023-05-30] MEDS: CMCS:Febuxostat 40 mg TAB (NF) PO SCH (09:33)
[2023-05-30] MEDS: Lidocaine 2% JELLY 6 ML Topical TOPICAL SCH ×3 (10:08→22:20)
[2023-05-31 00:22] LABS: Calcium 9.5 mg/dL (8.6-10.3); Creatinine, Serum 4.78 mg/dL (0.67-1.17); eGFR CKD-EPI 11.6 (>60)
[2023-05-31 01:03] LABS: ABS Lymphocytes 0.2 10^3/uL (1.0-4.8); ABS Monocytes 1.1 10^3/uL (0.0-1.1); ABS Neutrophils 6.7 10^3/uL (1.5-7.6); Hematocrit 30.1 % (38-53); Lymphocyte % 2.8 %; Mean Corpuscular Hemoglobin 29.1 pg (27-33); Mean Corpuscular Volume 88.1 fL (80-97); Mean Platelet Volume 7.4 fL (7.5-11.2); Nucleated Red Blood Cells % 0.1 %/100WBC (0.0-0.8); Platelet Count 223 10^3/uL (150-450); Red Blood Count 3.42 10^6/uL (4.06-5.63)
[2023-05-31 01:15] LABS: C Reactive Protein 146.8 mg/L (<8.01)
[2023-05-31] MEDS ORDERED: Vancomycin 1,000 MG in NS 0.9% 250 ml 250 ML IVPB ONE (01:59)
[2023-05-31] MEDS ORDERED: NS 0.9% 250 ml 250 ML IV ONE (01:59)
[2023-05-31] MEDS ORDERED: Piperacillin/Tazobac 3.375 BAG 3.375 GM/100 ML BAG IV ONE (02:00)
[2023-05-31] MEDS ORDERED: Zosyn per Pharmacy NOTE FOLLOW UP SCH (02:00)
[2023-05-31] MEDS ORDERED: Norepinephrine 4 MG/250mL D5W 4,000 MCG/250 ML BAG IV ONE (04:06)
[2023-05-31] MEDS: Norepinephrine 4 MG/250mL D5W 4,000 MCG/250 ML BAG IV SCH ×4 (04:34→16:21)
[2023-05-31 07:16] LABS: Calcium 8.8 mg/dL (8.6-10.3); Creatinine, Serum 5.17 mg/dL (0.67-1.17); Magnesium 1.7 mg/dL (1.9-2.7); Potassium 4.5 mmol/L (3.5-5.0); eGFR CKD-EPI 10.6 (>60)
[2023-05-31 07:27] LABS: Hematocrit 32.5 % (38-53); Hemoglobin 10.4 g/dL (13.2-16.3); Mean Corpuscular Hemoglobin 28.3 pg (27-33); Mean Corpuscular Volume 88.7 fL (80-97); Mean Platelet Volume 7.7 fL (7.5-11.2); Platelet Count 202 10^3/uL (150-450); Red Blood Count 3.67 10^6/uL (4.06-5.63); Red Cell Distribution Width 18.3 % (12-17); White Blood Count 14.8 10^3/uL (3.6-10.2)
[2023-05-31 07:44] LABS: ABS Lymphocytes 0.6 10^3/uL (1.0-4.8); ABS Monocytes 1.6 10^3/uL (0.0-1.1); ABS Neutrophils 12.6 10^3/uL (1.5-7.6); ABS Nucleated RBC 0.01 10^3/ul; Nucleated Red Blood Cells % 0.1 %/100WBC (0.0-0.8)
[2023-05-31] MEDS: Lidocaine PATCH 5% PATCH TRANSDERM SCH (08:15)
[2023-05-31] MEDS: ZOSYN 3.375 GM Q12H per EXTENDED INFUSION IV SCH ×2 (08:16→20:34)
[2023-05-31] MEDS: Lidocaine 2% JELLY 6 ML Topical TOPICAL SCH ×3 (08:16→20:38)
[2023-05-31] MEDS: CMCS:Febuxostat 40 mg TAB (NF) PO SCH (10:51)
[2023-05-31 11:28] LABS: C Reactive Protein 152.32 mg/L (<8.01)
[2023-06-01 04:49] LABS: ABS Lymphocytes 0.6 10^3/uL (1.0-4.8); ABS Monocytes 1.1 10^3/uL (0.0-1.1); ABS Neutrophils 14.1 10^3/uL (1.5-7.6); ABS Nucleated RBC 0.01 10^3/ul; Hematocrit 29.5 % (38-53); Hemoglobin 9.6 g/dL (13.2-16.3); Lymphocyte % 3.6 %; Mean Corpuscular Hemoglobin 28.7 pg (27-33); Mean Corpuscular Hgb Conc 32.4 g/dL (31-36); Mean Corpuscular Volume 88.6 fL (80-97); Mean Platelet Volume 7.8 fL (7.5-11.2); Platelet Count 191 10^3/uL (150-450); Red Blood Count 3.33 10^6/uL (4.06-5.63); Red Cell Distribution Width 18.1 % (12-17); White Blood Count 15.8 10^3/uL (3.6-10.2)
[2023-06-01 05:15] LABS: Phosphorus 4.8 mg/dL (2.5-5.0); Potassium 4.7 mmol/L (3.5-5.0)
[2023-06-01 05:17] LABS: Calcium 7.9 mg/dL (8.6-10.3); Creatinine, Serum 5.57 mg/dL (0.67-1.17); Magnesium 1.8 mg/dL (1.9-2.7); eGFR CKD-EPI 9.7 (>60)
[2023-06-01] MEDS: Lidocaine 2% JELLY 6 ML Topical TOPICAL SCH ×3 (09:07→21:15)
[2023-06-01] MEDS: ZOSYN 3.375 GM Q12H per EXTENDED INFUSION IV SCH ×2 (09:07→19:49)
[2023-06-01] MEDS: Lidocaine PATCH 5% PATCH TRANSDERM SCH (09:07)
[2023-06-01] MEDS: CMCS:Febuxostat 40 mg TAB (NF) PO SCH (09:08)
[2023-06-01] MEDS: Norepinephrine 4 MG/250mL D5W 4,000 MCG/250 ML BAG IV SCH (13:54)
[2023-06-01] MEDS ORDERED: Albumin Human 25% 25 GM/100 ML BTL IV PRN (23:16)
[2023-06-01] MEDS ORDERED: NS 0.9% 1000 ml BAG 100 ML IV PRN (23:16)
[2023-06-01] MEDS ORDERED: NS 0.9% 1000 ml BAG 200 ML IV PRN (23:16)
[2023-06-02 05:40] LABS: ABS Basophils 0.1 10^3/uL (0.0-0.1); ABS Lymphocytes 0.5 10^3/uL (1.0-4.8); ABS Monocytes 0.9 10^3/uL (0.0-1.1); ABS Nucleated RBC 0.01 10^3/ul; Hematocrit 30.7 % (38-53); Hemoglobin 10.1 g/dL (13.2-16.3); Lymphocyte % 2.8 %; Mean Corpuscular Hemoglobin 28.8 pg (27-33); Mean Corpuscular Volume 87.2 fL (80-97); Mean Platelet Volume 7.6 fL (7.5-11.2); Nucleated Red Blood Cells % 0.1 %/100WBC (0.0-0.8); Platelet Count 227 10^3/uL (150-450); Red Blood Count 3.52 10^6/uL (4.06-5.63); Red Cell Distribution Width 18.2 % (12-17); White Blood Count 18.5 10^3/uL (3.6-10.2)
[2023-06-02 06:06] LABS: Calcium 8.4 mg/dL (8.6-10.3); Creatinine, Serum 6.31 mg/dL (0.67-1.17); Magnesium 2.1 mg/dL (1.9-2.7); Potassium 5.8 mmol/L (3.5-5.0); eGFR CKD-EPI 8.3 (>60)
[2023-06-02] MEDS ORDERED: Dextrose 50% Syringe 50 ml 25 GM/50 ML SYRINGE IV PUSH ONE (06:44)
[2023-06-02] MEDS: ZOSYN 3.375 GM Q12H per EXTENDED INFUSION IV SCH ×2 (07:56→20:02)
[2023-06-02] MEDS: CMCS:Febuxostat 40 mg TAB (NF) PO SCH (08:56)
[2023-06-02] MEDS: Heparin 1,000 UNIT/ML 10 ml (10,000 UNITS) CATHLAB/DIALYSIS DIALYSIS PRN ×5 (09:00→13:15)
[2023-06-02] MEDS: Lidocaine PATCH 5% PATCH TRANSDERM SCH (11:01)
[2023-06-02] MEDS: Lidocaine 2% JELLY 6 ML Topical TOPICAL SCH ×3 (11:01→21:01)
[2023-06-02 15:21] LABS: Hepatitis B Surface Antigen Nonreactive (Nonreactive)
[2023-06-02 15:26] LABS: Hepatitis B Core IgM Nonreactive (Nonreactive)
[2023-06-02 15:39] LABS: Hepatitis B Surface Ab Not Immune (Immune)
[2023-06-02 16:47] LABS: Urine Appearance Cloudy; Urine Bilirubin Negative (Negative); Urine Blood Negative (Negative); Urine Color Amber; Urine Glucose Negative (Negative); Urine Ketones Negative (Negative); Urine Nitrite Negative (Negative); Urine Protein 2+(100 mg/dL) (Negative); Urine Specific Gravity 1.018 (1.002-1.030); Urine Urobilinogen Negative (Negative)
[2023-06-02 16:53] LABS: Urine Bacteria Absent (Absent); Urine Red Blood Cell 1+(3-5/hpf) (Absent); Urine White Blood Cell 1+(6-10/hpf) (Absent)
[2023-06-02] MEDS: Neomycin/Polym/Bacit TOP OINT 15 GM TOPICAL SCH (21:02)
[2023-06-03 04:51] LABS: ABS Lymphocytes 0.4 10^3/uL (1.0-4.8); ABS Monocytes 0.4 10^3/uL (0.0-1.1); ABS Neutrophils 10.7 10^3/uL (1.5-7.6); ABS Nucleated RBC 0.01 10^3/ul; Hematocrit 28.7 % (38-53); Hemoglobin 9.4 g/dL (13.2-16.3); Lymphocyte % 3.6 %; Mean Corpuscular Hemoglobin 28.5 pg (27-33); Mean Corpuscular Hgb Conc 32.8 g/dL (31-36); Mean Platelet Volume 7.7 fL (7.5-11.2); Nucleated Red Blood Cells % 0.1 %/100WBC (0.0-0.8); Platelet Count 195 10^3/uL (150-450); Red Blood Count 3.29 10^6/uL (4.06-5.63); White Blood Count 11.6 10^3/uL (3.6-10.2)
[2023-06-03 05:12] LABS: Albumin 3.2 g/dL (3.2-5.2); Albumin/Globulin Ratio 1.1 (1-3); Calcium 8.2 mg/dL (8.6-10.3); Creatinine, Serum 4.9 mg/dL (0.67-1.17); Globulin 2.9 g/dL (2-4); Magnesium 2.1 mg/dL (1.9-2.7); Potassium 5.7 mmol/L (3.5-5.0); Total Bilirubin 1.3 mg/dL (0.2-1.0); Total Protein 6.1 g/dL (6.4-8.9); eGFR CKD-EPI 11.3 (>60)
[2023-06-03] MEDS ORDERED: Dextrose 50% Syringe 50 ml 25 GM/50 ML SYRINGE IV PUSH ONE (05:17)
[2023-06-03] MEDS: ZOSYN 3.375 GM Q12H per EXTENDED INFUSION IV SCH (08:35)
[2023-06-03] MEDS: Lidocaine PATCH 5% PATCH TRANSDERM SCH (08:35)
[2023-06-03] MEDS: Lidocaine 2% JELLY 6 ML Topical TOPICAL SCH ×3 (09:18→23:26)
[2023-06-03] MEDS: Heparin 1,000 UNIT/ML 10 ml (10,000 UNITS) CATHLAB/DIALYSIS DIALYSIS SCH (09:18)
[2023-06-03] MEDS: CMCS:Febuxostat 40 mg TAB (NF) PO SCH (09:18)
[2023-06-03] MEDS: Neomycin/Polym/Bacit TOP OINT 15 GM TOPICAL SCH ×2 (09:18→23:26)
[2023-06-03] MEDS: cefTRIAXone 2 gm/50 mL D5W 2 GM/50 ML BAG IV SCH (11:38)
[2023-06-03 15:41] LABS: Calcium 8.3 mg/dL (8.6-10.3); Creatinine, Serum 4.96 mg/dL (0.67-1.17); Magnesium 2.1 mg/dL (1.9-2.7); Potassium 5.2 mmol/L (3.5-5.0); eGFR CKD-EPI 11.1 (>60)
[2023-06-03] MEDS: Ondansetron 4 mg VIAL 2 MG/ML 2 ml VIAL IV PRN (23:30)
[2023-06-04 05:33] LABS: ABS Basophils 0.1 10^3/uL (0.0-0.1); ABS Lymphocytes 0.6 10^3/uL (1.0-4.8); ABS Monocytes 0.9 10^3/uL (0.0-1.1); ABS Neutrophils 11.4 10^3/uL (1.5-7.6); ABS Nucleated RBC 0.02 10^3/ul; Hematocrit 29.9 % (38-53); Hemoglobin 9.8 g/dL (13.2-16.3); Lymphocyte % 4.7 %; Mean Corpuscular Hemoglobin 28.5 pg (27-33); Mean Corpuscular Hgb Conc 32.7 g/dL (31-36); Mean Corpuscular Volume 87.2 fL (80-97); Mean Platelet Volume 7.6 fL (7.5-11.2); Nucleated Red Blood Cells % 0.1 %/100WBC (0.0-0.8); Platelet Count 214 10^3/uL (150-450); Red Blood Count 3.43 10^6/uL (4.06-5.63); Red Cell Distribution Width 17.9 % (12-17)
[2023-06-04 05:57] LABS: Calcium 8.4 mg/dL (8.6-10.3); Creatinine, Serum 5.02 mg/dL (0.67-1.17); Potassium 4.8 mmol/L (3.5-5.0)
[2023-06-04] MEDS: Ondansetron 4 mg VIAL 2 MG/ML 2 ml VIAL IV PRN (06:49)
[2023-06-04] MEDS: Lidocaine PATCH 5% PATCH TRANSDERM SCH (08:58)
[2023-06-04] MEDS: Lidocaine 2% JELLY 6 ML Topical TOPICAL SCH ×4 (08:59→23:45)
[2023-06-04] MEDS: Neomycin/Polym/Bacit TOP OINT 15 GM TOPICAL SCH ×2 (09:00→22:16)
[2023-06-04] MEDS ORDERED: Prochlorperazine 5 mg/ml 2 ml VIAL (10 mg) IV PRN (09:19)
[2023-06-04] MEDS: CMCS:Febuxostat 40 mg TAB (NF) PO SCH (09:36)
[2023-06-04] MEDS: cefTRIAXone 2 gm/50 mL D5W 2 GM/50 ML BAG IV SCH (11:37)
[2023-06-04] MEDS: Heparin 1,000 UNIT/ML 10 ml (10,000 UNITS) CATHLAB/DIALYSIS DIALYSIS PRN (21:45)
[2023-06-05] MEDS: Neomycin/Polym/Bacit TOP OINT 15 GM TOPICAL SCH ×4 (00:19→21:51)
[2023-06-05 06:21] LABS: ABS Basophils 0.1 10^3/uL (0.0-0.1); ABS Lymphocytes 0.6 10^3/uL (1.0-4.8); ABS Monocytes 1.2 10^3/uL (0.0-1.1); ABS Neutrophils 10.4 10^3/uL (1.5-7.6); ABS Nucleated RBC 0.01 10^3/ul; Eosinophil % 0.1 %; Hematocrit 31.6 % (38-53); Hemoglobin 10.2 g/dL (13.2-16.3); Mean Corpuscular Hemoglobin 28.3 pg (27-33); Mean Corpuscular Hgb Conc 32.3 g/dL (31-36); Mean Corpuscular Volume 87.5 fL (80-97); Mean Platelet Volume 7.5 fL (7.5-11.2); Platelet Count 237 10^3/uL (150-450); Red Blood Count 3.61 10^6/uL (4.06-5.63); Red Cell Distribution Width 17.7 % (12-17); White Blood Count 12.3 10^3/uL (3.6-10.2)
[2023-06-05 06:40] LABS: Calcium 8.5 mg/dL (8.6-10.3); Creatinine, Serum 5.09 mg/dL (0.67-1.17); Magnesium 1.8 mg/dL (1.9-2.7); eGFR CKD-EPI 10.8 (>60)
[2023-06-05] MEDS: CMCS:Febuxostat 40 mg TAB (NF) PO SCH (08:13)
[2023-06-05] MEDS: Lidocaine PATCH 5% PATCH TRANSDERM SCH (08:16)
[2023-06-05] MEDS: Lidocaine 2% JELLY 6 ML Topical TOPICAL SCH ×4 (08:17→21:51)
[2023-06-05] MEDS: cefTRIAXone 2 gm/50 mL D5W 2 GM/50 ML BAG IV SCH (11:33)
[2023-06-05] MEDS ORDERED: Heparin 1,000 UNIT/ML 10 ml (10,000 UNITS) CATHLAB/DIALYSIS DIALYSIS SCH (13:00)
[2023-06-05] MEDS: Heparin 1,000 UNIT/ML 10 ml (10,000 UNITS) CATHLAB/DIALYSIS DIALYSIS SCH ×2 (13:16→16:13)
[2023-06-06] MEDS ORDERED: NS 0.9% 1000 ml BAG 1,000 ML IV ONE ×2 (07:00)
[2023-06-06 07:27] LABS: ABS Eosinophils 0.1 10^3/uL (0.0-0.5); ABS Lymphocytes 1.4 10^3/uL (1.0-4.8); ABS Monocytes 1.1 10^3/uL (0.0-1.1); ABS Neutrophils 10.4 10^3/uL (1.5-7.6); ABS Nucleated RBC 0.01 10^3/ul; Eosinophil % 0.6 %; Hematocrit 32.6 % (38-53); Hemoglobin 10.6 g/dL (13.2-16.3); Lymphocyte % 10.8 %; Mean Corpuscular Hemoglobin 28.5 pg (27-33); Mean Corpuscular Hgb Conc 32.3 g/dL (31-36); Mean Corpuscular Volume 88.1 fL (80-97); Mean Platelet Volume 7.3 fL (7.5-11.2); Nucleated Red Blood Cells % 0.1 %/100WBC (0.0-0.8); Platelet Count 252 10^3/uL (150-450); Red Blood Count 3.71 10^6/uL (4.06-5.63); Red Cell Distribution Width 17.8 % (12-17)
[2023-06-06 09:05] LABS: Calcium 8.8 mg/dL (8.6-10.3); Creatinine, Serum 5.59 mg/dL (0.67-1.17); Potassium 4.6 mmol/L (3.5-5.0); eGFR CKD-EPI 9.6 (>60)
[2023-06-06] MEDS: CMCS:Febuxostat 40 mg TAB (NF) PO SCH (09:35)
[2023-06-06] MEDS: Lidocaine PATCH 5% PATCH TRANSDERM SCH (09:51)
[2023-06-06] MEDS: cefTRIAXone 2 gm/50 mL D5W 2 GM/50 ML BAG IV SCH (11:58)
[2023-06-06] MEDS ORDERED: Phenylephrine 40 mcg/mL 10mL (400mcg) SYRINGE ONE (12:19)
[2023-06-06] MEDS ORDERED: Midazolam 5 mg/5 ml VIAL 1 mg/ml 5 ml VIAL (5 mg) ONE (13:52)
[2023-06-06] MEDS ORDERED: Flumazenil 0.5 mg/5 ml 0.1 MG/ML 5 ml VIAL ONE (13:53)
[2023-06-06] MEDS ORDERED: Naloxone 0.4 mg VIAL 0.4 mg/ml 1 ml VIAL ONE (13:53)
[2023-06-06] MEDS ORDERED: fentaNYL 100 mcg/2 ml 50 MCG/ML VIAL ONE (13:53)
[2023-06-06] MEDS ORDERED: fentaNYL 100 mcg/2 ml 50 MCG/ML VIAL IV SLOW PU ONE (15:14)
[2023-06-06] MEDS ORDERED: Midazolam 10 mg/10 ml VIAL 1 mg/ml 10 ml VIAL (10 mg) IV SLOW PU ONE (15:14)
[2023-06-06] MEDS ORDERED: Naloxone 0.4 mg VIAL 0.4 mg/ml 1 ml VIAL IV PUSH PRN (16:14)
[2023-06-06] MEDS ORDERED: Flumazenil 0.5 mg/5 ml 0.1 MG/ML 5 ml VIAL IV PRN (16:14)
[2023-06-06] MEDS: Lidocaine 2% JELLY 6 ML Topical TOPICAL SCH ×2 (21:26)
[2023-06-06] MEDS: Neomycin/Polym/Bacit TOP OINT 15 GM TOPICAL SCH ×2 (21:26)
[2023-06-07] MEDS ORDERED: Neomycin/Polym/Bacit TOP OINT 15 GM TOPICAL SCH (01:00)
[2023-06-07] MEDS: Neomycin/Polym/Bacit TOP OINT 15 GM TOPICAL SCH ×2 (04:26→14:22)
[2023-06-07] MEDS: Lidocaine 2% JELLY 6 ML Topical TOPICAL SCH ×2 (05:26→14:22)
[2023-06-07 07:07] LABS: ABS Eosinophils 0.1 10^3/uL (0.0-0.5); ABS Lymphocytes 0.8 10^3/uL (1.0-4.8); ABS Monocytes 1.1 10^3/uL (0.0-1.1); ABS Neutrophils 9.5 10^3/uL (1.5-7.6); ABS Nucleated RBC 0.01 10^3/ul; Hematocrit 30.9 % (38-53); Lymphocyte % 7.1 %; Mean Corpuscular Hemoglobin 28.3 pg (27-33); Mean Corpuscular Hgb Conc 32.3 g/dL (31-36); Mean Corpuscular Volume 87.7 fL (80-97); Mean Platelet Volume 7.6 fL (7.5-11.2); Nucleated Red Blood Cells % 0.1 %/100WBC (0.0-0.8); Platelet Count 260 10^3/uL (150-450); Red Blood Count 3.52 10^6/uL (4.06-5.63); Red Cell Distribution Width 17.8 % (12-17); White Blood Count 11.5 10^3/uL (3.6-10.2)
[2023-06-07] MEDS: CMCS:Febuxostat 40 mg TAB (NF) PO SCH (09:24)
[2023-06-07 21:47] VITALS: BP 93/50
== END 2023-06-07 13:30 | disposition short-term general hospital (02) | DRG 314 ==
LOC: ED 14:28 → SUATTDRO 20:28 → EDHOLD 20:28 → ICU 21:49 → MED 05-29 00:26 → ICU 05-31 04:46 → MEDTELE 06-04 17:54
PROVIDERS: ADMIT Internal Medicine; ATTEND Internal Medicine

== ENCOUNTER 2023-06-25 15:42 | Inpatient (IN) ==
[2023-06-25] MEDS ORDERED: Meropenem 2 GM in NS 0.9% 100 ml BAG 100 ML IVPB ONE (16:16)
[2023-06-25 17:21] LABS: ABS Basophils 0.1 10^3/uL (0.0-0.1); ABS Eosinophils 0.2 10^3/uL (0.0-0.5); ABS Lymphocytes 0.9 10^3/uL (1.0-4.8); ABS Monocytes 1.1 10^3/uL (0.0-1.1); ABS Neutrophils 4.4 10^3/uL (1.5-7.6); ABS Nucleated RBC 0.01 10^3/ul; Eosinophil % 2.3 %; Hematocrit 26.2 % (38-53); Hemoglobin 8.7 g/dL (13.2-16.3); Lymphocyte % 14.2 %; Mean Corpuscular Hemoglobin 29.4 pg (27-33); Mean Corpuscular Hgb Conc 33.2 g/dL (31-36); Mean Corpuscular Volume 88.6 fL (80-97); Mean Platelet Volume 7.4 fL (7.5-11.2); Nucleated Red Blood Cells % 0.1 %/100WBC (0.0-0.8); Platelet Count 162 10^3/uL (150-450); Red Blood Count 2.95 10^6/uL (4.06-5.63); Red Cell Distribution Width 20.1 % (12-17); White Blood Count 6.7 10^3/uL (3.6-10.2)
[2023-06-25 17:42] LABS: Albumin/Globulin Ratio 0.9 (1-3); C Reactive Protein 70.73 mg/L (<8.01); Calcium 8.4 mg/dL (8.6-10.3); Creatinine, Serum 4.9 mg/dL (0.67-1.17); Globulin 3.2 g/dL (2-4); Magnesium 2.4 mg/dL (1.9-2.7); Potassium 3.6 mmol/L (3.5-5.0); Total Bilirubin 0.7 mg/dL (0.2-1.0); Total Protein 6.2 g/dL (6.4-8.9); eGFR CKD-EPI 11.3 (>60)
[2023-06-25] MEDS: Hemorrhoidal OINT 1 TUBE PR PRN ×2 (17:49→19:45)
[2023-06-25 18:07] LABS: TSH Ultra Thyroid Stim Horm 5.36 mcIU/mL (0.34-5.60)
[2023-06-25 18:52] LABS: High Sensitivity Troponin 1 Hr 362 pg/mL (<20)
[2023-06-25] MEDS ORDERED: Polyethylene Glycol 3350 17 GM PACKET PO PRN (20:37)
[2023-06-25] MEDS ORDERED: Senna TAB 8.6 mg TAB PO PRN (20:37)
[2023-06-25] MEDS ORDERED: NS 0.9% 1000 ml BAG 200 ML IV PRN (20:59)
[2023-06-25] MEDS ORDERED: NS 0.9% 1000 ml BAG 100 ML IV PRN (20:59)
[2023-06-25] MEDS ORDERED: Bumetanide IV 0.25 MG/ML 4 ml VIAL (1 mg) IV SLOW PU ONE (21:23)
[2023-06-26] MEDS ORDERED: Heparin 5000 UNITS/ML 1 mL VIAL SUBCUT ONE (00:36)
[2023-06-26 00:54] LABS: Hepatitis B Surface Antigen Nonreactive (Nonreactive)
[2023-06-26 01:11] LABS: Hepatitis B Surface Ab Not Immune (Immune)
[2023-06-26 04:57] LABS: Calcium 8.6 mg/dL (8.6-10.3); Creatinine, Serum 5.45 mg/dL (0.67-1.17); Potassium 3.7 mmol/L (3.5-5.0); eGFR CKD-EPI 9.9 (>60)
[2023-06-26 05:22] LABS: Hematocrit 24.8 % (38-53); Hemoglobin 8.2 g/dL (13.2-16.3); Mean Corpuscular Hemoglobin 29.4 pg (27-33); Mean Corpuscular Hgb Conc 33.2 g/dL (31-36); Mean Corpuscular Volume 88.7 fL (80-97); Mean Platelet Volume 7.4 fL (7.5-11.2); Platelet Count 153 10^3/uL (150-450); Red Blood Count 2.79 10^6/uL (4.06-5.63); Red Cell Distribution Width 19.9 % (12-17); White Blood Count 6.3 10^3/uL (3.6-10.2)
[2023-06-26] MEDS: Heparin 1,000 UNIT/ML 10 ml (10,000 UNITS) CATHLAB/DIALYSIS DIALYSIS PRN ×5 (08:18→12:35)
[2023-06-26 08:21] LABS: ABS Eosinophils 0.2 10^3/uL (0.0-0.5); ABS Lymphocytes 1.1 10^3/uL (1.0-4.8); ABS Monocytes 1.1 10^3/uL (0.0-1.1); ABS Neutrophils 3.9 10^3/uL (1.5-7.6); Anisocytosis 1+; Eosinophil % 3.5 %; Lymphocyte % 16.6 %; Microcytosis 1+; Nucleated Red Blood Cells % 0.1 %/100WBC (0.0-0.8); Polychromasia 1+
[2023-06-26] MEDS ORDERED: Meropenem 500MG PREMIX(*) 500 MG/50 ML BAG IV SCH (09:00)
[2023-06-26] MEDS ORDERED: MEROPENEM 500 MG IV SCH (09:00)
[2023-06-26] MEDS: Albumin Human 25% 25 GM/100 ML BTL IV PRN ×2 (11:12→11:53)
[2023-06-26] MEDS: CMCS:Febuxostat 40 mg TAB (NF) PO SCH (13:04)
[2023-06-26] MEDS: cefTRIAXone 2 gm/50 mL D5W 2 GM/50 ML BAG IV SCH (18:25)
[2023-06-26 18:53] LABS: Activated Partial Thrombo Time 32.9 seconds (26.0-38.0); INR 1.09 (0.83-1.13)
[2023-06-26] MEDS: Heparin 5000 UNITS/ML 1 mL VIAL SUBCUT SCH (21:40)
[2023-06-26] MEDS: Hemorrhoidal OINT 1 TUBE PR PRN (23:43)
[2023-06-27 05:40] LABS: Hematocrit 23.4 % (38-53); Hemoglobin 7.9 g/dL (13.2-16.3); Mean Corpuscular Hgb Conc 33.9 g/dL (31-36); Mean Corpuscular Volume 88.7 fL (80-97); Mean Platelet Volume 6.9 fL (7.5-11.2); Platelet Count 163 10^3/uL (150-450); Red Blood Count 2.64 10^6/uL (4.06-5.63); Red Cell Distribution Width 20.3 % (12-17); White Blood Count 6.4 10^3/uL (3.6-10.2)
[2023-06-27] MEDS: CMCS:Febuxostat 40 mg TAB (NF) PO SCH (10:27)
[2023-06-27] MEDS: Heparin 5000 UNITS/ML 1 mL VIAL SUBCUT SCH ×2 (10:28→22:11)
[2023-06-27] MEDS: Heparin 1,000 UNIT/ML 10 ml (10,000 UNITS) CATHLAB/DIALYSIS DIALYSIS SCH (12:00)
[2023-06-27] MEDS: Hemorrhoidal OINT 1 TUBE PR PRN (16:58)
[2023-06-27] MEDS: cefTRIAXone 2 gm/50 mL D5W 2 GM/50 ML BAG IV SCH (17:10)
[2023-06-28 06:16] LABS: Calcium 8.7 mg/dL (8.6-10.3); Creatinine, Serum 4.35 mg/dL (0.67-1.17)
[2023-06-28 06:33] LABS: Hemoglobin 8.3 g/dL (13.2-16.3); Mean Corpuscular Hemoglobin 29.7 pg (27-33); Mean Corpuscular Hgb Conc 33.3 g/dL (31-36); Mean Corpuscular Volume 89.1 fL (80-97); Mean Platelet Volume 7.1 fL (7.5-11.2); Platelet Count 190 10^3/uL (150-450); Red Blood Count 2.81 10^6/uL (4.06-5.63); Red Cell Distribution Width 20.8 % (12-17); White Blood Count 7.8 10^3/uL (3.6-10.2)
[2023-06-28] MEDS: CMCS:Febuxostat 40 mg TAB (NF) PO SCH (07:53)
[2023-06-28] MEDS: Hemorrhoidal OINT 1 TUBE PR PRN ×3 (07:53→16:37)
[2023-06-28] MEDS: Heparin 5000 UNITS/ML 1 mL VIAL SUBCUT SCH (07:54)
[2023-06-28] MEDS: cefTRIAXone 2 gm/50 mL D5W 2 GM/50 ML BAG IV SCH (18:29)
[2023-06-28] MEDS: Heparin 1,000 UNIT/ML 10 ml (10,000 UNITS) CATHLAB/DIALYSIS DIALYSIS SCH (19:46)
[2023-06-29 05:43] LABS: Hemoglobin 7.9 g/dL (13.2-16.3); Mean Corpuscular Hemoglobin 29.5 pg (27-33); Mean Corpuscular Hgb Conc 32.7 g/dL (31-36); Mean Corpuscular Volume 90.1 fL (80-97); Mean Platelet Volume 6.9 fL (7.5-11.2); Platelet Count 188 10^3/uL (150-450); Red Blood Count 2.66 10^6/uL (4.06-5.63); Red Cell Distribution Width 20.6 % (12-17); White Blood Count 6.6 10^3/uL (3.6-10.2)
[2023-06-29 06:01] LABS: Calcium 8.5 mg/dL (8.6-10.3); Creatinine, Serum 4.72 mg/dL (0.67-1.17); Potassium 3.8 mmol/L (3.5-5.0); eGFR CKD-EPI 11.8 (>60)
[2023-06-29] MEDS: CMCS:Febuxostat 40 mg TAB (NF) PO SCH (10:09)
[2023-06-29] MEDS: Hemorrhoidal OINT 1 TUBE PR PRN (13:44)
[2023-06-29] MEDS: Heparin 5000 UNITS/ML 1 mL VIAL SUBCUT SCH ×2 (13:56→21:41)
[2023-06-29] MEDS ORDERED: Ferric Gluconate IV 250 MG in NS 0.9% 250 ml 200 ML IV PUSH SCH (14:00)
[2023-06-29] MEDS ORDERED: FERRIC GLUCONATE IV PUSH SCH (14:00)
[2023-06-29] MEDS: Ferric Gluconate IV 250 MG in NS 0.9% 250 ml 200 ML IVPB SCH (15:37)
[2023-06-29] MEDS: cefTRIAXone 2 gm/50 mL D5W 2 GM/50 ML BAG IV SCH (17:50)
[2023-06-29] MEDS: Heparin 1,000 UNIT/ML 10 ml (10,000 UNITS) CATHLAB/DIALYSIS DIALYSIS SCH (19:31)
[2023-06-30] MEDS: Heparin 5000 UNITS/ML 1 mL VIAL SUBCUT SCH ×3 (04:43→22:54)
[2023-06-30 05:14] LABS: ABS Basophils 0.1 10^3/uL (0.0-0.1); ABS Eosinophils 0.3 10^3/uL (0.0-0.5); ABS Lymphocytes 1.1 10^3/uL (1.0-4.8); ABS Neutrophils 3.8 10^3/uL (1.5-7.6); ABS Nucleated RBC 0.01 10^3/ul; Eosinophil % 4.4 %; Hematocrit 24.6 % (38-53); Hemoglobin 8.2 g/dL (13.2-16.3); Mean Corpuscular Hemoglobin 29.9 pg (27-33); Mean Corpuscular Hgb Conc 33.2 g/dL (31-36); Mean Corpuscular Volume 89.9 fL (80-97); Mean Platelet Volume 6.8 fL (7.5-11.2); Nucleated Red Blood Cells % 0.2 %/100WBC (0.0-0.8); Platelet Count 200 10^3/uL (150-450); Red Blood Count 2.74 10^6/uL (4.06-5.63); White Blood Count 6.2 10^3/uL (3.6-10.2)
[2023-06-30 05:31] LABS: Calcium 8.7 mg/dL (8.6-10.3); Creatinine, Serum 5.06 mg/dL (0.67-1.17); Magnesium 2.2 mg/dL (1.9-2.7); Potassium 3.9 mmol/L (3.5-5.0); eGFR CKD-EPI 10.9 (>60)
[2023-06-30] MEDS: CMCS:Febuxostat 40 mg TAB (NF) PO SCH (08:12)
[2023-06-30] MEDS: Hemorrhoidal OINT 1 TUBE PR PRN (15:26)
[2023-06-30] MEDS: cefTRIAXone 2 gm/50 mL D5W 2 GM/50 ML BAG IV SCH (17:31)
[2023-06-30] MEDS: Heparin 1,000 UNIT/ML 10 ml (10,000 UNITS) CATHLAB/DIALYSIS DIALYSIS SCH (20:08)
[2023-07-01] MEDS: Heparin 5000 UNITS/ML 1 mL VIAL SUBCUT SCH ×3 (06:45→22:26)
[2023-07-01 07:02] LABS: Hematocrit 25.2 % (38-53); Hemoglobin 8.3 g/dL (13.2-16.3); Mean Corpuscular Hemoglobin 29.8 pg (27-33); Mean Corpuscular Hgb Conc 32.9 g/dL (31-36); Mean Corpuscular Volume 90.6 fL (80-97); Mean Platelet Volume 7.1 fL (7.5-11.2); Platelet Count 230 10^3/uL (150-450); Red Blood Count 2.78 10^6/uL (4.06-5.63); Red Cell Distribution Width 21.7 % (12-17); White Blood Count 6.9 10^3/uL (3.6-10.2)
[2023-07-01 07:38] LABS: Calcium 8.9 mg/dL (8.6-10.3); Creatinine, Serum 5.82 mg/dL (0.67-1.17); Potassium 4.5 mmol/L (3.5-5.0); eGFR CKD-EPI 9.2 (>60)
[2023-07-01] MEDS: Ferric Gluconate IV 250 MG in NS 0.9% 250 ml 200 ML IVPB SCH (09:17)
[2023-07-01] MEDS: CMCS:Febuxostat 40 mg TAB (NF) PO SCH (09:19)
[2023-07-01] MEDS: Hemorrhoidal OINT 1 TUBE PR PRN ×2 (15:08→22:44)
[2023-07-01] MEDS: cefTRIAXone 2 gm/50 mL D5W 2 GM/50 ML BAG IV SCH (17:46)
[2023-07-01] MEDS: Heparin 1,000 UNIT/ML 10 ml (10,000 UNITS) CATHLAB/DIALYSIS DIALYSIS SCH (19:49)
[2023-07-02] MEDS: Heparin 5000 UNITS/ML 1 mL VIAL SUBCUT SCH ×3 (06:01→22:23)
[2023-07-02 06:33] LABS: ABS Basophils 0.1 10^3/uL (0.0-0.1); ABS Eosinophils 0.2 10^3/uL (0.0-0.5); ABS Neutrophils 3.6 10^3/uL (1.5-7.6); ABS Nucleated RBC 0.03 10^3/ul; Eosinophil % 2.9 %; Hematocrit 24.2 % (38-53); Hemoglobin 8.1 g/dL (13.2-16.3); Lymphocyte % 17.3 %; Mean Corpuscular Hemoglobin 30.3 pg (27-33); Mean Corpuscular Hgb Conc 33.6 g/dL (31-36); Mean Corpuscular Volume 90.4 fL (80-97); Mean Platelet Volume 7.2 fL (7.5-11.2); Nucleated Red Blood Cells % 0.5 %/100WBC (0.0-0.8); Platelet Count 241 10^3/uL (150-450); Red Blood Count 2.68 10^6/uL (4.06-5.63); Red Cell Distribution Width 21.9 % (12-17); White Blood Count 5.9 10^3/uL (3.6-10.2)
[2023-07-02 06:50] LABS: Calcium 8.9 mg/dL (8.6-10.3); Creatinine, Serum 6.02 mg/dL (0.67-1.17); Magnesium 2.2 mg/dL (1.9-2.7); Potassium 4.1 mmol/L (3.5-5.0); eGFR CKD-EPI 8.8 (>60)
[2023-07-02] MEDS: CMCS:Febuxostat 40 mg TAB (NF) PO SCH (10:45)
[2023-07-02] MEDS: cefTRIAXone 2 gm/50 mL D5W 2 GM/50 ML BAG IV SCH (18:10)
[2023-07-02] MEDS: Hemorrhoidal OINT 1 TUBE PR PRN (19:28)
[2023-07-02] MEDS: Heparin 1,000 UNIT/ML 10 ml (10,000 UNITS) CATHLAB/DIALYSIS DIALYSIS SCH (20:11)
[2023-07-03 05:47] VITALS: BP 98/59
[2023-07-03] MEDS: Heparin 5000 UNITS/ML 1 mL VIAL SUBCUT SCH (06:15)
[2023-07-03 07:12] LABS: Hematocrit 24.6 % (38-53); Hemoglobin 8.2 g/dL (13.2-16.3); Mean Corpuscular Hemoglobin 30.5 pg (27-33); Mean Corpuscular Hgb Conc 33.3 g/dL (31-36); Mean Corpuscular Volume 91.6 fL (80-97); Mean Platelet Volume 7.3 fL (7.5-11.2); Platelet Count 257 10^3/uL (150-450); Red Blood Count 2.68 10^6/uL (4.06-5.63); Red Cell Distribution Width 21.7 % (12-17); White Blood Count 5.9 10^3/uL (3.6-10.2)
[2023-07-03 07:23] LABS: Anion Gap 13 mmol/L (2-16); Blood Urea Nitrogen 81 mg/dL (6-24); CO2 Carbon Dioxide 26 mmol/L (22-32); Calcium 8.9 mg/dL (8.6-10.3); Chloride 94 mmol/L (101-111); Glucose 91 mg/dL (70-100); Sodium 133 mmol/L (135-145); eGFR CKD-EPI 8.5 (>60)
[2023-07-03 08:15] LABS: Rapid COVID-19 Molecular Undetected (Undetected)
[2023-07-03] MEDS: CMCS:Febuxostat 40 mg TAB (NF) PO SCH (08:47)
== END 2023-07-03 09:15 | DRG 683 ==
LOC: ED 15:42 → EDHOLD 15:42 → SUATTDRO 20:06 → MED 20:06 → SUATTDRO 06-26 12:41
PROVIDERS: ADMIT Internal Medicine; ATTEND Student in an Organized Health Care Education/Training Program

== ENCOUNTER 2023-11-11 21:12 | Inpatient (IN) ==
[2023-11-11 22:01] LABS: ABS Eosinophils 0.1 10^3/uL (0.0-0.5); ABS Lymphocytes 0.4 10^3/uL (1.0-4.8); ABS Neutrophils 3.9 10^3/uL (1.5-7.6); Eosinophil % 2.2 %; Hematocrit 35.2 % (38-53); Hemoglobin 11.9 g/dL (13.2-16.3); Lymphocyte % 7.1 %; Mean Corpuscular Hemoglobin 33.2 pg (27-33); Mean Corpuscular Hgb Conc 33.9 g/dL (31-36); Mean Platelet Volume 7.4 fL (7.5-11.2); Nucleated Red Blood Cells % 0.1 %/100WBC (0.0-0.8); Platelet Count 179 10^3/uL (150-450); Red Blood Count 3.59 10^6/uL (4.06-5.63); White Blood Count 5.4 10^3/uL (3.6-10.2)
[2023-11-11 23:01] LABS: Albumin 3.6 g/dL (3.2-5.2); Calcium 9.8 mg/dL (8.6-10.3); Creatinine, Serum 7.86 mg/dL (0.67-1.17); Globulin 3.6 g/dL (2-4); Magnesium 2.4 mg/dL (1.9-2.7); Phosphorus 3.7 mg/dL (2.5-5.0); Potassium 4.7 mmol/L (3.5-5.0); Total Bilirubin 0.6 mg/dL (0.2-1.0); Total Protein 7.2 g/dL (6.4-8.9); eGFR CKD-EPI 6.4 (>60)
[2023-11-12] MEDS: NS 0.9% 1000 ml BAG 1,000 ML IV SCH (03:31)
[2023-11-12 04:46] LABS: Erythrocyte Sed Rate 100 mm/Hr (0-19)
[2023-11-12] MEDS: cefTRIAXone 1 gm/50 mL D5W 1 GM/50 ML BAG IV SCH (05:21)
[2023-11-12 06:32] LABS: Hematocrit 30.5 % (38-53); Hemoglobin 10.6 g/dL (13.2-16.3); Mean Corpuscular Hemoglobin 33.6 pg (27-33); Mean Corpuscular Hgb Conc 34.7 g/dL (31-36); Mean Corpuscular Volume 96.8 fL (80-97); Mean Platelet Volume 7.3 fL (7.5-11.2); Platelet Count 148 10^3/uL (150-450); Red Blood Count 3.15 10^6/uL (4.06-5.63); Red Cell Distribution Width 15.8 % (12-17)
[2023-11-12 06:55] LABS: Activated Partial Thrombo Time 30.2 seconds (26.0-38.0); INR 1.1 (0.83-1.13)
[2023-11-12 06:58] LABS: Creatinine, Serum 8.34 mg/dL (0.67-1.17); Magnesium 2.3 mg/dL (1.9-2.7); Phosphorus 3.9 mg/dL (2.5-5.0); Potassium 4.3 mmol/L (3.5-5.0); eGFR CKD-EPI 5.9 (>60)
[2023-11-12 07:13] LABS: TSH Ultra Thyroid Stim Horm 2.38 mcIU/mL (0.34-5.60)
[2023-11-12] MEDS: Heparin 5000 UNITS/ML 1 mL VIAL SUBCUT SCH (07:33)
[2023-11-12] MEDS: Febuxostat 40 mg TAB (NF) PO SCH (10:20)
[2023-11-12] MEDS: Heparin 1,000 UNIT/ML 10 ml (10,000 UNITS) CATHLAB/DIALYSIS DIALYSIS SCH (14:53)
[2023-11-13 06:44] LABS: Hematocrit 30.6 % (38-53); Hemoglobin 10.5 g/dL (13.2-16.3); Mean Corpuscular Hemoglobin 33.4 pg (27-33); Mean Corpuscular Hgb Conc 34.2 g/dL (31-36); Mean Corpuscular Volume 97.7 fL (80-97); Mean Platelet Volume 7.7 fL (7.5-11.2); Platelet Count 157 10^3/uL (150-450); Red Blood Count 3.14 10^6/uL (4.06-5.63); Red Cell Distribution Width 15.9 % (12-17); White Blood Count 4.9 10^3/uL (3.6-10.2)
[2023-11-13 07:05] LABS: Calcium 8.8 mg/dL (8.6-10.3); Creatinine, Serum 7.64 mg/dL (0.67-1.17); Potassium 4.1 mmol/L (3.5-5.0); eGFR CKD-EPI 6.6 (>60)
[2023-11-14 06:12] LABS: ABS Eosinophils 0.3 10^3/uL (0.0-0.5); ABS Lymphocytes 0.4 10^3/uL (1.0-4.8); ABS Monocytes 0.9 10^3/uL (0.0-1.1); ABS Neutrophils 2.8 10^3/uL (1.5-7.6); Eosinophil % 6.8 %; Hematocrit 30.5 % (38-53); Hemoglobin 10.5 g/dL (13.2-16.3); Mean Corpuscular Hemoglobin 33.4 pg (27-33); Mean Corpuscular Hgb Conc 34.3 g/dL (31-36); Mean Corpuscular Volume 97.3 fL (80-97); Mean Platelet Volume 7.4 fL (7.5-11.2); Platelet Count 156 10^3/uL (150-450); Red Blood Count 3.14 10^6/uL (4.06-5.63); Red Cell Distribution Width 16.1 % (12-17); White Blood Count 4.4 10^3/uL (3.6-10.2)
[2023-11-14 06:40] LABS: Calcium 8.6 mg/dL (8.6-10.3); Creatinine, Serum 7.74 mg/dL (0.67-1.17); Potassium 3.6 mmol/L (3.5-5.0); eGFR CKD-EPI 6.5 (>60)
[2023-11-14] MEDS: Hemorrhoidal OINT 1 TUBE PR PRN (21:49)
[2023-11-15 06:16] LABS: Hematocrit 30.7 % (38-53); Hemoglobin 10.5 g/dL (13.2-16.3); Mean Corpuscular Hemoglobin 33.1 pg (27-33); Mean Corpuscular Hgb Conc 34.1 g/dL (31-36); Mean Corpuscular Volume 97.1 fL (80-97); Mean Platelet Volume 7.4 fL (7.5-11.2); Platelet Count 157 10^3/uL (150-450); Red Blood Count 3.16 10^6/uL (4.06-5.63); White Blood Count 4.5 10^3/uL (3.6-10.2)
[2023-11-15 06:46] LABS: Calcium 8.6 mg/dL (8.6-10.3); Creatinine, Serum 6.87 mg/dL (0.67-1.17); Potassium 3.7 mmol/L (3.5-5.0); eGFR CKD-EPI 7.5 (>60)
[2023-11-15] MEDS ORDERED: Lidocaine 1% VIAL 10 MG/ML 30 ML VIAL ONE (13:45)
[2023-11-15] MEDS ORDERED: Heparin 2 UNITS/ML IVPREMIX 2,000 UNIT/1,000 ML BAG IV ONE (13:49)
[2023-11-15] MEDS ORDERED: fentaNYL 100 mcg/2 ml 50 MCG/ML VIAL ONE (14:08)
[2023-11-15] MEDS ORDERED: Midazolam 5 mg/5 ml VIAL 1 mg/ml 5 ml VIAL (5 mg) ONE (14:14)
[2023-11-15] MEDS ORDERED: Heparin 1,000 UNIT/ML 10 ml (10,000 UNITS) CATHLAB/DIALYSIS ONE (14:25)
[2023-11-16 06:07] LABS: ABS Eosinophils 0.3 10^3/uL (0.0-0.5); ABS Lymphocytes 0.4 10^3/uL (1.0-4.8); ABS Monocytes 0.8 10^3/uL (0.0-1.1); ABS Neutrophils 3.1 10^3/uL (1.5-7.6); Eosinophil % 6.3 %; Hematocrit 29.4 % (38-53); Hemoglobin 10.2 g/dL (13.2-16.3); Lymphocyte % 9.1 %; Mean Corpuscular Hemoglobin 33.6 pg (27-33); Mean Corpuscular Hgb Conc 34.5 g/dL (31-36); Mean Corpuscular Volume 97.2 fL (80-97); Mean Platelet Volume 7.6 fL (7.5-11.2); Nucleated Red Blood Cells % 0.1 %/100WBC (0.0-0.8); Platelet Count 168 10^3/uL (150-450); Red Blood Count 3.02 10^6/uL (4.06-5.63); Red Cell Distribution Width 15.8 % (12-17); White Blood Count 4.6 10^3/uL (3.6-10.2)
[2023-11-16 06:17] LABS: Calcium 8.5 mg/dL (8.6-10.3); Creatinine, Serum 7.4 mg/dL (0.67-1.17); Potassium 3.9 mmol/L (3.5-5.0); eGFR CKD-EPI 6.8 (>60)
[2023-11-17 06:55] LABS: ABS Eosinophils 0.3 10^3/uL (0.0-0.5); ABS Lymphocytes 0.4 10^3/uL (1.0-4.8); ABS Monocytes 0.8 10^3/uL (0.0-1.1); Eosinophil % 7.4 %; Hematocrit 29.5 % (38-53); Hemoglobin 10.2 g/dL (13.2-16.3); Lymphocyte % 8.6 %; Mean Corpuscular Hemoglobin 33.8 pg (27-33); Mean Corpuscular Hgb Conc 34.6 g/dL (31-36); Mean Corpuscular Volume 97.8 fL (80-97); Mean Platelet Volume 7.6 fL (7.5-11.2); Nucleated Red Blood Cells % 0.1 %/100WBC (0.0-0.8); Platelet Count 171 10^3/uL (150-450); Red Blood Count 3.02 10^6/uL (4.06-5.63); Red Cell Distribution Width 15.9 % (12-17); White Blood Count 4.6 10^3/uL (3.6-10.2)
[2023-11-17 07:11] LABS: Calcium 8.6 mg/dL (8.6-10.3); Creatinine, Serum 7.3 mg/dL (0.67-1.17); Potassium 3.6 mmol/L (3.5-5.0)
[2023-11-18 08:18] LABS: ABS Eosinophils 0.4 10^3/uL (0.0-0.5); ABS Lymphocytes 0.4 10^3/uL (1.0-4.8); ABS Monocytes 0.8 10^3/uL (0.0-1.1); ABS Neutrophils 3.1 10^3/uL (1.5-7.6); ABS Nucleated RBC 0.01 10^3/ul; Hematocrit 29.5 % (38-53); Hemoglobin 10.2 g/dL (13.2-16.3); Lymphocyte % 7.8 %; Mean Corpuscular Hemoglobin 33.5 pg (27-33); Mean Corpuscular Hgb Conc 34.5 g/dL (31-36); Mean Corpuscular Volume 97.2 fL (80-97); Mean Platelet Volume 7.5 fL (7.5-11.2); Nucleated Red Blood Cells % 0.2 %/100WBC (0.0-0.8); Platelet Count 183 10^3/uL (150-450); Red Blood Count 3.04 10^6/uL (4.06-5.63); Red Cell Distribution Width 15.8 % (12-17); White Blood Count 4.7 10^3/uL (3.6-10.2)
[2023-11-18 08:41] LABS: Rapid COVID-19 Molecular Undetected (Undetected)
[2023-11-18 09:53] LABS: Calcium 8.7 mg/dL (8.6-10.3); Creatinine, Serum 7.4 mg/dL (0.67-1.17); Potassium 3.6 mmol/L (3.5-5.0); eGFR CKD-EPI 6.8 (>60)
[2023-11-18] MEDS: Heparin 1,000 UNIT/ML 10 ml (10,000 UNITS) CATHLAB/DIALYSIS DIALYSIS ONE (10:35)
[2023-11-18 11:46] LABS: Hepatitis B Surface Antigen Nonreactive (Nonreactive)
[2023-11-18] MEDS: Albumin Human 25% 25 GM/100 ML IV PRN (11:49)
[2023-11-18 12:03] LABS: Hepatitis B Surface Ab Not Immune (Immune)
[2023-11-18 13:03] VITALS: BP 108/53
== END 2023-11-18 14:46 | DRG 193 ==
LOC: ED 21:12 → EDHOLD 21:12 → SUATTDRO 23:40 → MEDTELE 11-12 02:02 → SUATTDRO 11-13 12:04
PROVIDERS: ADMIT Student in an Organized Health Care Education/Training Program; ATTEND Family Medicine

== ENCOUNTER 2024-01-02 15:13 | Inpatient (IN) ==
[2024-01-02 19:57] LABS: Creatinine, Serum 7.92 mg/dL (0.67-1.17); Potassium 3.8 mmol/L (3.5-5.0); eGFR CKD-EPI 6.3 (>60)
[2024-01-02 19:58] LABS: Calcium 7.9 mg/dL (8.6-10.3); Magnesium 1.8 mg/dL (1.9-2.7); Phosphorus 4.8 mg/dL (2.5-5.0)
[2024-01-02] MEDS: Norepinephrine 4 MG/250mL D5W 4,000 MCG/250 ML BAG IV SCH (20:03)
[2024-01-02] MEDS: Magnesium Sulfate IV 1GM/100ML 1 GM/100 ML BAG IV ONE (20:16)
[2024-01-02] MEDS ORDERED: Heparin *DIALYSIS* ONLY 1,000 UNITS/ML VIAL DIALYSIS SCH (23:00)
[2024-01-03 04:12] LABS: ABS Lymphocytes 0.5 10^3/uL (1.0-4.8); ABS Monocytes 0.8 10^3/uL (0.0-1.1); ABS Neutrophils 7.2 10^3/uL (1.5-7.6); ABS Nucleated RBC 0.01 10^3/ul; Eosinophil % 0.4 %; Hemoglobin 12.1 g/dL (13.2-16.3); Lymphocyte % 5.8 %; Mean Corpuscular Hemoglobin 32.8 pg (27-33); Mean Corpuscular Hgb Conc 34.5 g/dL (31-36); Mean Corpuscular Volume 95.1 fL (80-97); Mean Platelet Volume 7.7 fL (7.5-11.2); Nucleated Red Blood Cells % 0.1 %/100WBC (0.0-0.8); Platelet Count 128 10^3/uL (150-450); Red Blood Count 3.68 10^6/uL (4.06-5.63); Red Cell Distribution Width 19.4 % (12-17); White Blood Count 8.6 10^3/uL (3.6-10.2)
[2024-01-03] MEDS: Norepinephrine 4 MG/250mL D5W 4,000 MCG/250 ML BAG IV SCH (04:25)
[2024-01-03 04:57] LABS: Albumin 2.8 g/dL (3.2-5.2); Calcium 8.1 mg/dL (8.6-10.3); Creatinine, Serum 7.47 mg/dL (0.67-1.17); Globulin 2.9 g/dL (2-4); Phosphorus 4.5 mg/dL (2.5-5.0); Potassium 3.1 mmol/L (3.5-5.0); Total Bilirubin 1.4 mg/dL (0.2-1.0); Total Protein 5.7 g/dL (6.4-8.9); eGFR CKD-EPI 6.8 (>60)
[2024-01-03 05:11] LABS: TSH Ultra Thyroid Stim Horm 3.8 mcIU/mL (0.34-5.60)
[2024-01-03] MEDS: Potassium Chlor 20 meq TAB.ER PO ONE ×2 (05:47→07:32)
[2024-01-03] MEDS ORDERED: Vancomycin per Pharmacy 1 EA NOTE FOLLOW UP PRN (07:28)
[2024-01-03] MEDS: Sulfur Hexaflouride MICROSPHR 25 MG VIAL IV ONE (07:39)
[2024-01-03] MEDS: Ondansetron 4 mg VIAL 2 MG/ML 2 ml VIAL IV PRN (07:42)
[2024-01-03 08:07] LABS: Vancomycin Trough 14.4 mcg/mL
[2024-01-03] MEDS: CMCS:Febuxostat 40 mg TAB (NF) PO SCH (08:48)
[2024-01-03] MEDS ORDERED: Heparin 5000 UNITS/ML 1 mL VIAL SUBCUT SCH (09:00)
[2024-01-03] MEDS: Vancomycin 1,500 MG in NS 0.9% 250 ml 250 ML IVPB ONE (10:14)
[2024-01-03] MEDS: Ondansetron 4 mg VIAL 2 MG/ML 2 ml VIAL IV ONE (11:26)
[2024-01-03] MEDS ORDERED: Flumazenil 0.5 mg/5 ml 0.1 MG/ML 5 ml VIAL ONE (12:41)
[2024-01-03] MEDS ORDERED: Naloxone 0.4 mg VIAL 0.4 mg/ml 1 ml VIAL ONE (12:41)
[2024-01-03] MEDS ORDERED: fentaNYL 100 mcg/2 ml 50 MCG/ML VIAL ONE (12:50)
[2024-01-03] MEDS ORDERED: Midazolam 5 mg/5 ml VIAL 1 mg/ml 5 ml VIAL (5 mg) ONE (12:50)
[2024-01-03] MEDS: Heparin 1,000 UNIT/ML 10 ml (10,000 UNITS) CATHLAB/DIALYSIS DIALYSIS SCH (13:58)
[2024-01-03] MEDS: Ampicillin ADVAN 2 GM in NS 0.9% 100 ml BAG 100 ML IVPB SCH (14:29)
[2024-01-03] MEDS: NS 0.9% 500 ml BAG 500 ML IV ONE (16:30)
[2024-01-03] MEDS: Midazolam 10 mg/10 ml VIAL 1 mg/ml 10 ml VIAL (10 mg) IV SLOW PU ONE (16:33)
[2024-01-03] MEDS: fentaNYL 100 mcg/2 ml 50 MCG/ML VIAL IV SLOW PU ONE (16:33)
[2024-01-03 17:33] LABS: Body Fluid Source Peritonial Fluid
[2024-01-03 17:34] LABS: Body Fluid Appearance Clear
[2024-01-03 17:53] LABS: Body Fluid Total Nucleated 277 /mcL
[2024-01-03 18:55] LABS: Body Fluid Mono 86 %; Body Fluid Other Cells 2; Body Fluid Total Cells Counted 200
[2024-01-03] MEDS: Heparin 5000 UNITS/ML 1 mL VIAL SUBCUT SCH (22:00)
[2024-01-04 05:15] LABS: ABS Basophils 0.1 10^3/uL (0.0-0.1); ABS Lymphocytes 0.6 10^3/uL (1.0-4.8); ABS Neutrophils 9.8 10^3/uL (1.5-7.6); ABS Nucleated RBC 0.01 10^3/ul; Eosinophil % 0.4 %; Hematocrit 34.1 % (38-53); Hemoglobin 11.8 g/dL (13.2-16.3); Lymphocyte % 5.4 %; Mean Corpuscular Hemoglobin 32.7 pg (27-33); Mean Corpuscular Hgb Conc 34.6 g/dL (31-36); Mean Corpuscular Volume 94.8 fL (80-97); Mean Platelet Volume 7.8 fL (7.5-11.2); Nucleated Red Blood Cells % 0.1 %/100WBC (0.0-0.8); Platelet Count 124 10^3/uL (150-450); Red Cell Distribution Width 19.4 % (12-17); White Blood Count 11.5 10^3/uL (3.6-10.2)
[2024-01-04 05:54] LABS: Calcium 7.9 mg/dL (8.6-10.3); Creatinine, Serum 6.52 mg/dL (0.67-1.17); Magnesium 1.8 mg/dL (1.9-2.7); Phosphorus 3.7 mg/dL (2.5-5.0); Potassium 3.3 mmol/L (3.5-5.0)
[2024-01-04] MEDS: Magnesium Sulfate IV 1GM/100ML 1 GM/100 ML BAG IV ONE (06:39)
[2024-01-05] MEDS: Heparin 5000 UNITS/ML 1 mL VIAL SUBCUT SCH (00:37)
[2024-01-05 04:55] LABS: ABS Basophils 0.1 10^3/uL (0.0-0.1); ABS Eosinophils 0.1 10^3/uL (0.0-0.5); ABS Lymphocytes 0.4 10^3/uL (1.0-4.8); ABS Monocytes 1.2 10^3/uL (0.0-1.1); ABS Neutrophils 9.5 10^3/uL (1.5-7.6); Eosinophil % 1.3 %; Hematocrit 34.8 % (38-53); Hemoglobin 11.6 g/dL (13.2-16.3); Lymphocyte % 3.6 %; Mean Corpuscular Hemoglobin 31.4 pg (27-33); Mean Corpuscular Hgb Conc 33.4 g/dL (31-36); Mean Corpuscular Volume 94.2 fL (80-97); Mean Platelet Volume 7.8 fL (7.5-11.2); Platelet Count 133 10^3/uL (150-450); Red Blood Count 3.69 10^6/uL (4.06-5.63); Red Cell Distribution Width 19.5 % (12-17); White Blood Count 11.3 10^3/uL (3.6-10.2)
[2024-01-05 06:01] LABS: Anion Gap 15 mmol/L (2-16); Blood Urea Nitrogen 76 mg/dL (6-24); CO2 Carbon Dioxide 25 mmol/L (22-32); Calcium 8.2 mg/dL (8.6-10.3); Chloride 88 mmol/L (101-111); Creatinine, Serum 5.77 mg/dL (0.67-1.17); Glucose 159 mg/dL (70-100); Sodium 128 mmol/L (135-145); eGFR CKD-EPI 9.2 (>60)
[2024-01-05 07:06] LABS: Magnesium 1.8 mg/dL (1.9-2.7)
[2024-01-05] MEDS: Magnesium Sulfate IV 1GM/100ML 1 GM/100 ML BAG IV ONE (08:12)
[2024-01-05 08:47] LABS: Phosphorus 2.7 mg/dL (2.5-5.0); Potassium Redraw 2.8 mmol/L (3.5-5.0)
[2024-01-05] MEDS: Albumin Human 25% 25 GM/100 ML BTL IV ONE (10:48)
[2024-01-05] MEDS: Potassium Chlor 10 meq TAB PO SCH (12:20)
[2024-01-05] MEDS: Albumin Human 5% 12.5 GM/250 ML BTL IV ONE (15:11)
[2024-01-05 20:16] LABS: Anion Gap 18 mmol/L (2-16); Blood Urea Nitrogen 80 mg/dL (6-24); CO2 Carbon Dioxide 22 mmol/L (22-32); Calcium 8.5 mg/dL (8.6-10.3); Chloride 89 mmol/L (101-111); Creatinine, Serum 5.96 mg/dL (0.67-1.17); Glucose 153 mg/dL (70-100); Sodium 129 mmol/L (135-145); eGFR CKD-EPI 8.9 (>60)
[2024-01-05] MEDS: Potassium Chlor 20 meq TAB.ER PO ONE (22:02)
[2024-01-06 05:05] LABS: ABS Eosinophils 0.1 10^3/uL (0.0-0.5); ABS Lymphocytes 0.5 10^3/uL (1.0-4.8); ABS Monocytes 0.9 10^3/uL (0.0-1.1); ABS Neutrophils 6.8 10^3/uL (1.5-7.6); Hemoglobin 10.7 g/dL (13.2-16.3); Lymphocyte % 5.7 %; Mean Corpuscular Hemoglobin 32.1 pg (27-33); Mean Corpuscular Hgb Conc 33.5 g/dL (31-36); Mean Corpuscular Volume 95.8 fL (80-97); Mean Platelet Volume 7.7 fL (7.5-11.2); Platelet Count 140 10^3/uL (150-450); Red Blood Count 3.34 10^6/uL (4.06-5.63); Red Cell Distribution Width 19.1 % (12-17); White Blood Count 8.3 10^3/uL (3.6-10.2)
[2024-01-06 05:50] LABS: Calcium 8.3 mg/dL (8.6-10.3); Creatinine, Serum 5.59 mg/dL (0.67-1.17); Phosphorus 1.8 mg/dL (2.5-5.0); Potassium 4.1 mmol/L (3.5-5.0); eGFR CKD-EPI 9.6 (>60)
[2024-01-06] MEDS: DAPTOmycin SDV 700 MG in NS 0.9% 50 ML 50 ML IVPB SCH (15:35)
[2024-01-06] MEDS: cefTRIAXone 2 gm/50 mL D5W 2 GM/50 ML BAG IV SCH (16:23)
[2024-01-07 02:08] LABS: Anion Gap 16 mmol/L (2-16); Blood Urea Nitrogen 71 mg/dL (6-24); CO2 Carbon Dioxide 23 mmol/L (22-32); Calcium 8.7 mg/dL (8.6-10.3); Chloride 90 mmol/L (101-111); Creatinine, Serum 5.42 mg/dL (0.67-1.17); Glucose 152 mg/dL (70-100); Magnesium 1.9 mg/dL (1.9-2.7); Sodium 129 mmol/L (135-145); eGFR CKD-EPI 9.9 (>60)
[2024-01-07 04:59] LABS: ABS Basophils 0.1 10^3/uL (0.0-0.1); ABS Eosinophils 0.2 10^3/uL (0.0-0.5); ABS Lymphocytes 0.3 10^3/uL (1.0-4.8); ABS Neutrophils 7.6 10^3/uL (1.5-7.6); Eosinophil % 1.9 %; Hematocrit 31.5 % (38-53); Lymphocyte % 2.9 %; Mean Corpuscular Hemoglobin 32.9 pg (27-33); Mean Corpuscular Hgb Conc 34.8 g/dL (31-36); Mean Corpuscular Volume 94.5 fL (80-97); Mean Platelet Volume 7.4 fL (7.5-11.2); Platelet Count 147 10^3/uL (150-450); Red Blood Count 3.33 10^6/uL (4.06-5.63); White Blood Count 9.1 10^3/uL (3.6-10.2)
[2024-01-07 07:34] LABS: Calcium 8.3 mg/dL (8.6-10.3); Creatinine, Serum 5.37 mg/dL (0.67-1.17); Magnesium 1.9 mg/dL (1.9-2.7); Phosphorus 2.1 mg/dL (2.5-5.0); Potassium 3.7 mmol/L (3.5-5.0); eGFR CKD-EPI 10.1 (>60)
[2024-01-07] MEDS: Hydrocortisone INJ 100 MG/2ML 2 ML VIAL IV SCH (10:21)
[2024-01-07] MEDS: Magnesium Sulfate 2 gm BAG 2 GM/50 ML BAG IVPB ONE (10:21)
[2024-01-07] MEDS: Potassium Chlor 20 meq TAB.ER PO ONE (10:22)
[2024-01-07] MEDS: NS 0.9% 250 ml 250 ML IV ONE (17:14)
[2024-01-07] MEDS: Norepinephrine 4 MG/250mL D5W 4,000 MCG/250 ML BAG IV SCH (17:37)
[2024-01-07] MEDS: Senna TAB 8.6 mg TAB PO SCH (21:27)
[2024-01-08 06:04] LABS: ABS Lymphocytes 0.2 10^3/uL (1.0-4.8); ABS Monocytes 0.3 10^3/uL (0.0-1.1); ABS Neutrophils 9.2 10^3/uL (1.5-7.6); Eosinophil % 0.1 %; Hematocrit 30.9 % (38-53); Hemoglobin 10.5 g/dL (13.2-16.3); Lymphocyte % 1.8 %; Mean Corpuscular Hemoglobin 32.2 pg (27-33); Mean Corpuscular Hgb Conc 33.9 g/dL (31-36); Mean Platelet Volume 7.6 fL (7.5-11.2); Platelet Count 179 10^3/uL (150-450); Red Blood Count 3.25 10^6/uL (4.06-5.63); Red Cell Distribution Width 19.2 % (12-17); White Blood Count 9.7 10^3/uL (3.6-10.2)
[2024-01-08 06:38] LABS: Albumin 2.8 g/dL (3.2-5.2); Albumin/Globulin Ratio 0.9 (1-3); Calcium 8.4 mg/dL (8.6-10.3); Creatinine, Serum 5.3 mg/dL (0.67-1.17); Globulin 3.2 g/dL (2-4); Magnesium 2.2 mg/dL (1.9-2.7); Phosphorus 2.2 mg/dL (2.5-5.0); Potassium 4.2 mmol/L (3.5-5.0); Total Bilirubin 1.9 mg/dL (0.2-1.0); eGFR CKD-EPI 10.2 (>60)
[2024-01-08] MEDS: Albumin Human 25% 25 GM/100 ML BTL IV ONE (10:22)
[2024-01-08] MEDS: Polyethylene Glycol 3350 17 GM PACKET PO SCH (10:25)
[2024-01-08] MEDS: Lidocaine 2% PF 5 ML VIAL ONE (13:39)
[2024-01-09] MEDS: Albumin Human 5% 12.5 GM/250 ML BTL IV ONE (01:23)
[2024-01-09 05:05] LABS: ABS Lymphocytes 0.2 10^3/uL (1.0-4.8); ABS Monocytes 0.5 10^3/uL (0.0-1.1); ABS Neutrophils 8.1 10^3/uL (1.5-7.6); Eosinophil % 0.1 %; Hematocrit 29.3 % (38-53); Hemoglobin 10.2 g/dL (13.2-16.3); Lymphocyte % 2.2 %; Mean Corpuscular Hemoglobin 32.9 pg (27-33); Mean Corpuscular Hgb Conc 34.7 g/dL (31-36); Mean Platelet Volume 7.5 fL (7.5-11.2); Platelet Count 188 10^3/uL (150-450); Red Blood Count 3.08 10^6/uL (4.06-5.63); Red Cell Distribution Width 19.6 % (12-17); White Blood Count 8.9 10^3/uL (3.6-10.2)
[2024-01-09 05:51] LABS: Calcium 7.9 mg/dL (8.6-10.3); Creatinine, Serum 5.08 mg/dL (0.67-1.17); Magnesium 2.1 mg/dL (1.9-2.7); Phosphorus 3.5 mg/dL (2.5-5.0); Potassium 4.2 mmol/L (3.5-5.0); eGFR CKD-EPI 10.8 (>60)
[2024-01-10 04:38] LABS: ABS Lymphocytes 0.3 10^3/uL (1.0-4.8); ABS Monocytes 0.5 10^3/uL (0.0-1.1); ABS Neutrophils 8.7 10^3/uL (1.5-7.6); Hematocrit 30.3 % (38-53); Hemoglobin 10.4 g/dL (13.2-16.3); Mean Corpuscular Hemoglobin 33.1 pg (27-33); Mean Corpuscular Hgb Conc 34.5 g/dL (31-36); Mean Corpuscular Volume 96.1 fL (80-97); Mean Platelet Volume 7.6 fL (7.5-11.2); Platelet Count 188 10^3/uL (150-450); Red Blood Count 3.15 10^6/uL (4.06-5.63); Red Cell Distribution Width 19.6 % (12-17); White Blood Count 9.6 10^3/uL (3.6-10.2)
[2024-01-10 05:13] LABS: Calcium 8.3 mg/dL (8.6-10.3); Creatinine, Serum 5.16 mg/dL (0.67-1.17); Magnesium 2.2 mg/dL (1.9-2.7); Phosphorus 3.6 mg/dL (2.5-5.0); Potassium 4.2 mmol/L (3.5-5.0); eGFR CKD-EPI 10.6 (>60)
[2024-01-10] MEDS: Hemorrhoidal OINT 1 TUBE PR PRN (17:00)
[2024-01-11 00:42] LABS: ABS Lymphocytes 0.3 10^3/uL (1.0-4.8); ABS Monocytes 0.4 10^3/uL (0.0-1.1); Hematocrit 30.4 % (38-53); Hemoglobin 10.3 g/dL (13.2-16.3); Mean Corpuscular Hemoglobin 32.1 pg (27-33); Mean Corpuscular Hgb Conc 33.8 g/dL (31-36); Mean Platelet Volume 7.6 fL (7.5-11.2); Platelet Count 222 10^3/uL (150-450); Red Cell Distribution Width 18.7 % (12-17); White Blood Count 9.7 10^3/uL (3.6-10.2)
[2024-01-11 00:50] LABS: INR 1.13 (0.83-1.13)
[2024-01-11 05:41] LABS: ABS Lymphocytes 0.2 10^3/uL (1.0-4.8); ABS Monocytes 0.5 10^3/uL (0.0-1.1); ABS Neutrophils 8.6 10^3/uL (1.5-7.6); ABS Nucleated RBC 0.01 10^3/ul; Hematocrit 30.4 % (38-53); Hemoglobin 10.3 g/dL (13.2-16.3); Lymphocyte % 1.9 %; Mean Corpuscular Hemoglobin 32.3 pg (27-33); Mean Platelet Volume 7.7 fL (7.5-11.2); Nucleated Red Blood Cells % 0.1 %/100WBC (0.0-0.8); Platelet Count 242 10^3/uL (150-450); Red Cell Distribution Width 19.1 % (12-17); White Blood Count 9.3 10^3/uL (3.6-10.2)
[2024-01-11 06:21] LABS: Calcium 8.8 mg/dL (8.6-10.3); Creatinine, Serum 5.4 mg/dL (0.67-1.17); Magnesium 2.2 mg/dL (1.9-2.7); Phosphorus 4.2 mg/dL (2.5-5.0); Potassium 4.7 mmol/L (3.5-5.0)
[2024-01-11] MEDS: Oxymetazoline 0.05% NASAL SPR 15 ML BTL BOTH NARES SCH (06:53)
[2024-01-11] MEDS: Multivitamins/Minerals TAB PO SCH (10:23)
[2024-01-11] MEDS ORDERED: Phenol 1.4% Throat Spray BTL MT PRN (15:52)
[2024-01-11 15:58] LABS: Lactate Dehydrogenase, BF 6248 U/L
[2024-01-11] MEDS: Hydrocortisone INJ 100 MG/2ML 2 ML VIAL IV SCH (21:47)
[2024-01-11] MEDS: Tranexamic Acid 1,000 MG/10 ML SDV TOPICAL SCH (23:32)
[2024-01-12 05:34] LABS: ABS Lymphocytes 0.2 10^3/uL (1.0-4.8); ABS Monocytes 0.7 10^3/uL (0.0-1.1); ABS Neutrophils 8.6 10^3/uL (1.5-7.6); Eosinophil % 0.1 %; Hematocrit 27.2 % (38-53); Hemoglobin 9.6 g/dL (13.2-16.3); Mean Corpuscular Hemoglobin 33.8 pg (27-33); Mean Corpuscular Hgb Conc 35.5 g/dL (31-36); Mean Corpuscular Volume 95.1 fL (80-97); Mean Platelet Volume 7.7 fL (7.5-11.2); Platelet Count 211 10^3/uL (150-450); Red Blood Count 2.85 10^6/uL (4.06-5.63); Red Cell Distribution Width 19.2 % (12-17); White Blood Count 9.5 10^3/uL (3.6-10.2)
[2024-01-12 05:55] LABS: Calcium 8.4 mg/dL (8.6-10.3); Creatinine, Serum 5.29 mg/dL (0.67-1.17); Magnesium 2.1 mg/dL (1.9-2.7); Phosphorus 4.2 mg/dL (2.5-5.0); Potassium 4.2 mmol/L (3.5-5.0); eGFR CKD-EPI 10.2 (>60)
[2024-01-12 11:26] LABS: Fluid Type, Protein, Total PLEURAL; Glucose, BF 122 mg/dL; Total Protein, BF 3.5 g/dL
[2024-01-13 06:47] LABS: Calcium 8.3 mg/dL (8.6-10.3); Creatinine, Serum 5.19 mg/dL (0.67-1.17); Magnesium 2.2 mg/dL (1.9-2.7); Phosphorus 5.2 mg/dL (2.5-5.0); Potassium 3.9 mmol/L (3.5-5.0); eGFR CKD-EPI 10.5 (>60)
[2024-01-13 11:51] LABS: TB1 Ag minus Nil Result -0.02 IU/mL; TB2 Ag minus Nil Result -0.02 IU/mL
[2024-01-13 11:55] LABS: QuantiferonTb Gold Plus Result Negative (Negative)
[2024-01-13] MEDS ORDERED: Tranexamic Acid 1,000 MG/10 ML SDV TOPICAL PRN (14:17)
[2024-01-14 06:07] LABS: ABS Eosinophils 0.3 10^3/uL (0.0-0.5); ABS Lymphocytes 0.4 10^3/uL (1.0-4.8); ABS Monocytes 0.5 10^3/uL (0.0-1.1); ABS Neutrophils 7.3 10^3/uL (1.5-7.6); ABS Nucleated RBC 0.01 10^3/ul; Eosinophil % 3.3 %; Hemoglobin 9.4 g/dL (13.2-16.3); Lymphocyte % 4.4 %; Mean Corpuscular Hemoglobin 32.5 pg (27-33); Mean Corpuscular Hgb Conc 33.7 g/dL (31-36); Mean Corpuscular Volume 96.5 fL (80-97); Mean Platelet Volume 7.5 fL (7.5-11.2); Nucleated Red Blood Cells % 0.1 %/100WBC (0.0-0.8); Platelet Count 196 10^3/uL (150-450); Red Cell Distribution Width 19.6 % (12-17); White Blood Count 8.5 10^3/uL (3.6-10.2)
[2024-01-14 06:26] LABS: Calcium 8.2 mg/dL (8.6-10.3); Creatinine, Serum 5.1 mg/dL (0.67-1.17); Potassium 3.6 mmol/L (3.5-5.0); eGFR CKD-EPI 10.7 (>60)
[2024-01-15 06:10] LABS: ABS Eosinophils 0.2 10^3/uL (0.0-0.5); ABS Lymphocytes 0.2 10^3/uL (1.0-4.8); ABS Monocytes 0.5 10^3/uL (0.0-1.1); ABS Neutrophils 7.4 10^3/uL (1.5-7.6); ABS Nucleated RBC 0.01 10^3/ul; Hematocrit 27.4 % (38-53); Hemoglobin 9.5 g/dL (13.2-16.3); Lymphocyte % 2.3 %; Mean Corpuscular Hemoglobin 33.3 pg (27-33); Mean Corpuscular Hgb Conc 34.6 g/dL (31-36); Mean Corpuscular Volume 96.1 fL (80-97); Mean Platelet Volume 7.9 fL (7.5-11.2); Nucleated Red Blood Cells % 0.1 %/100WBC (0.0-0.8); Platelet Count 181 10^3/uL (150-450); Red Blood Count 2.85 10^6/uL (4.06-5.63); Red Cell Distribution Width 20.1 % (12-17); White Blood Count 8.3 10^3/uL (3.6-10.2)
[2024-01-15 06:42] LABS: Calcium 8.1 mg/dL (8.6-10.3); Creatinine, Serum 5.07 mg/dL (0.67-1.17); Potassium 3.5 mmol/L (3.5-5.0); eGFR CKD-EPI 10.8 (>60)
[2024-01-16 06:20] LABS: ABS Eosinophils 0.1 10^3/uL (0.0-0.5); ABS Lymphocytes 0.3 10^3/uL (1.0-4.8); ABS Monocytes 0.5 10^3/uL (0.0-1.1); ABS Neutrophils 6.5 10^3/uL (1.5-7.6); ABS Nucleated RBC 0.02 10^3/ul; Eosinophil % 1.1 %; Hematocrit 28.8 % (38-53); Hemoglobin 9.7 g/dL (13.2-16.3); Lymphocyte % 3.5 %; Mean Corpuscular Hemoglobin 32.6 pg (27-33); Mean Corpuscular Hgb Conc 33.8 g/dL (31-36); Mean Corpuscular Volume 96.5 fL (80-97); Mean Platelet Volume 8.1 fL (7.5-11.2); Nucleated Red Blood Cells % 0.2 %/100WBC (0.0-0.8); Platelet Count 182 10^3/uL (150-450); Red Blood Count 2.98 10^6/uL (4.06-5.63); White Blood Count 7.4 10^3/uL (3.6-10.2)
[2024-01-16 07:06] LABS: Calcium 8.2 mg/dL (8.6-10.3); Creatinine, Serum 5.07 mg/dL (0.67-1.17); Potassium 3.3 mmol/L (3.5-5.0); eGFR CKD-EPI 10.8 (>60)
[2024-01-16 07:25] LABS: Ferritin 774.4 ng/mL (24-336)
[2024-01-16] MEDS: Potassium Chloride LIQUID 20 MEQ/15 ML LIQUID PO ONE (14:25)
[2024-01-17 06:42] LABS: ABS Eosinophils 0.1 10^3/uL (0.0-0.5); ABS Lymphocytes 0.3 10^3/uL (1.0-4.8); ABS Monocytes 0.6 10^3/uL (0.0-1.1); ABS Neutrophils 5.3 10^3/uL (1.5-7.6); ABS Nucleated RBC 0.01 10^3/ul; Eosinophil % 1.7 %; Hematocrit 28.9 % (38-53); Hemoglobin 9.8 g/dL (13.2-16.3); Lymphocyte % 4.1 %; Mean Corpuscular Hemoglobin 32.6 pg (27-33); Mean Corpuscular Hgb Conc 33.8 g/dL (31-36); Mean Corpuscular Volume 96.4 fL (80-97); Mean Platelet Volume 8.2 fL (7.5-11.2); Nucleated Red Blood Cells % 0.2 %/100WBC (0.0-0.8); Platelet Count 186 10^3/uL (150-450); Red Cell Distribution Width 20.2 % (12-17); White Blood Count 6.3 10^3/uL (3.6-10.2)
[2024-01-17 07:03] LABS: Calcium 8.2 mg/dL (8.6-10.3); Creatinine, Serum 5.16 mg/dL (0.67-1.17); Potassium 3.1 mmol/L (3.5-5.0); eGFR CKD-EPI 10.6 (>60)
[2024-01-17] MEDS: Potassium Chloride LIQUID 20 MEQ/15 ML LIQUID PO ONE (09:42)
[2024-01-17] MEDS: Acetaminophen IV 1 GM/100ML 1,000 MG/100 ML BAG IV SCH (18:22)
[2024-01-18 06:10] LABS: ABS Eosinophils 0.1 10^3/uL (0.0-0.5); ABS Lymphocytes 0.3 10^3/uL (1.0-4.8); ABS Monocytes 0.8 10^3/uL (0.0-1.1); ABS Neutrophils 7.1 10^3/uL (1.5-7.6); ABS Nucleated RBC 0.01 10^3/ul; Eosinophil % 1.3 %; Hemoglobin 10.1 g/dL (13.2-16.3); Lymphocyte % 3.6 %; Mean Corpuscular Hemoglobin 32.7 pg (27-33); Mean Corpuscular Hgb Conc 33.6 g/dL (31-36); Mean Corpuscular Volume 97.3 fL (80-97); Mean Platelet Volume 8.2 fL (7.5-11.2); Nucleated Red Blood Cells % 0.1 %/100WBC (0.0-0.8); Platelet Count 192 10^3/uL (150-450); Red Blood Count 3.08 10^6/uL (4.06-5.63); Red Cell Distribution Width 20.2 % (12-17); White Blood Count 8.4 10^3/uL (3.6-10.2)
[2024-01-18 06:32] LABS: Calcium 8.1 mg/dL (8.6-10.3); Creatinine, Serum 5.38 mg/dL (0.67-1.17); Potassium 3.2 mmol/L (3.5-5.0)
[2024-01-18] MEDS: Lactated Ringers 1000 ml BAG 500 ML IV ONE (15:10)
[2024-01-18] MEDS: Acetaminophen IV 1 GM/100ML 1,000 MG/100 ML BAG IV SCH (19:19)
[2024-01-18] MEDS: KCL 20 MEQ/100 ML IVPREMIX 20 MEQ/100 ML BAG IV ONE (20:17)
[2024-01-18] MEDS ORDERED: Lorazepam PYXIS KEY PRN (20:46)
[2024-01-18] MEDS: LORazepam 2 mg VIAL 1 ml IV PUSH PRN (21:05)
[2024-01-19 05:48] LABS: ABS Basophils 0.1 10^3/uL (0.0-0.1); ABS Eosinophils 0.1 10^3/uL (0.0-0.5); ABS Lymphocytes 0.2 10^3/uL (1.0-4.8); ABS Monocytes 0.7 10^3/uL (0.0-1.1); ABS Neutrophils 4.7 10^3/uL (1.5-7.6); ABS Nucleated RBC 0.01 10^3/ul; Eosinophil % 2.2 %; Hematocrit 26.3 % (38-53); Hemoglobin 9.2 g/dL (13.2-16.3); Lymphocyte % 4.3 %; Mean Corpuscular Hgb Conc 34.8 g/dL (31-36); Mean Corpuscular Volume 97.6 fL (80-97); Mean Platelet Volume 7.8 fL (7.5-11.2); Nucleated Red Blood Cells % 0.1 %/100WBC (0.0-0.8); Platelet Count 136 10^3/uL (150-450); Red Cell Distribution Width 20.1 % (12-17); White Blood Count 5.8 10^3/uL (3.6-10.2)
[2024-01-19 06:03] LABS: Calcium 7.9 mg/dL (8.6-10.3); Creatinine, Serum 5.68 mg/dL (0.67-1.17); Potassium 3.2 mmol/L (3.5-5.0); eGFR CKD-EPI 9.4 (>60)
[2024-01-19] MEDS: HYDROmorphone 0.5 MG/0.5 ML SYRINGE IV SLOW PU ONE (06:16)
[2024-01-19] MEDS: KCL 20 MEQ/100 ML IVPREMIX 20 MEQ/100 ML BAG IV ONE (08:45)
[2024-01-19 16:20] VITALS: BP 76/49
[2024-01-19] MEDS: LORazepam 2 mg VIAL 1 ml IV PUSH PRN (17:01)
[2024-01-19] MEDS: Morphine 2 MG/ML SYRINGE IV PRN (22:04)
[2024-01-19] MEDS ORDERED: Lorazepam PYXIS KEY PRN (23:15)
[2024-01-19] MEDS: LORazepam 2 mg VIAL 1 ml IV PUSH ONE (23:24)
[2024-01-19] MEDS: LORazepam 2 mg VIAL 1 ml ONE (23:50)
[2024-01-20] MEDS: LORazepam 2 mg VIAL 1 ml IV PUSH ONE (00:25)
[2024-01-20] MEDS ORDERED: Lorazepam PYXIS KEY PRN (06:02)
[2024-01-20] MEDS: LORazepam 2 mg VIAL 1 ml IV PUSH PRN (06:29)
[2024-01-20] MEDS: Morphine 2 MG/ML SYRINGE IV PRN ×2 (10:00→20:12)
[2024-01-20] MEDS ORDERED: LORazepam 2 mg VIAL 1 ml IV PUSH PRN (11:55)
[2024-01-20] MEDS: Atropine 1% (ORAL/SL) 15 ML BTL SL PRN (21:05)
== END 2024-01-21 05:30 | disposition expired | DRG 853 ==
LOC: ICU 17:48 → SUATTDRO 01-10 16:54 → MEDTELE 01-11 20:21 → MED 01-12 15:42
PROVIDERS: ADMIT Internal Medicine Critical Care Medicine; ATTEND Internal Medicine